=== PATIENT | female | born 1935 | race Caucasian/White ===

== ENCOUNTER → 2018-03-02 | Day surgery (SDC) | payer MEDICARE ==
[2018-02-28 14:47] LABS: BASOPHILS # (AUTO) 0.1 (0.0-0.1); BASOPHILS % 0.6 % (0.0-1.0); EOSINOPHILS # (AUTO) 0.3 (0.0-0.4); EOSINOPHILS % 3.1 % (0.0-6.0); HEMATOCRIT 39.9 % (34.2-44.1); HEMOGLOBIN 13.6 g/dL (12.0-16.0); LYMPHOCYTES # (AUTO) 2.6 (1.0-3.2); LYMPHOCYTES % 27.2 % (18.0-39.1); MEAN CORPUSCULAR HEMOGLOBIN 32.2 pg (28-32); MEAN CORPUSCULAR HGB CONC 34.1 g/dL (31-35); MEAN CORPUSCULAR VOLUME 94.5 fL (81-99); MONOCYTES # (AUTO) 0.9 (0.2-0.8); MONOCYTES % 9.7 % (4.4-11.3); NEUTROPHILS # (AUTO) 5.6 (2.1-6.9); NEUTROPHILS % 58.9 % (38.7-80.0); PLATELET COUNT 249 x10e3/uL (140-360); RED BLOOD COUNT 4.22 x10e6/uL (3.6-5.1); RED CELL DISTRIBUTION WIDTH 13.2 % (11.7-14.4)
[2018-02-28 14:57] LABS: ANION GAP 14.3 mmol/L (8-16); CALCIUM 9.6 mg/dL (8.4-10.2); CREATININE, SERUM 1.16 mg/dL (0.57-1.11); POTASSIUM 4.3 mmol/L (3.5-5.1)
--- NOTE | 2018-03-01 07:44 | Diagnostic Imaging Report ---
PROCEDURE: Frontal and lateral views of the chest. COMPARISON: Chest x-ray 05/08/2009 was unavailable for comparison at the time of dictation. INDICATIONS: PREOP CXR FINDINGS: Lines/tubes: None. Lungs: The lungs are well inflated. Lungs are clear. There is no evidence of pneumonia or pulmonary edema. Pleura: There is no pleural effusion or pneumothorax. Heart and mediastinum: The heart and the mediastinum are normal. Aorta is tortuous and ectatic with significant atherosclerotic calcifications. Calcified bilateral hilar and mediastinal lymph nodes. Bones: No acute bony abnormality. Right upper quadrant cholecystectomy clips. Extensive vascular calcifications seen in the upper abdomen. IMPRESSION: 1. No acute cardiopulmonary disease. 2. Significant vascular calcifications. Dictated by: Douglas Alvarado M.D. on 02/28/2018 at 17:23 Electronically approved by: Douglas Alvarado M.D. on 02/28/2018 at 17:23
[~2018-03-02] MED LIST: ACETAMINOPHEN 1000 MG/100 ML 100 ML IV ONE; AMLODIPINE BESY10 MG PO; AMLODIPINE BESYL5 MG PO; ASPIRIN81 MG; ATORVASTATIN CA20 MG PO; BUPIVACAINE 0.5%/EPI 30 ML SDV INJ ONE; CEFAZOLIN SOD 2 GM/D5W 50ML 50 ML IV ONE; DEXAMETHASONE SOD PHOS INJ 4 MG/ML VIAL ONE; EPHEDRINE SULFATE INJ 50 MG/10 ML SYR ONE; FAMOTIDINE20 MG PO; FENTANYL CITRATE/PF 100MCG/2 ML INJ ONE; FLUNISOLIDE25 ML; FUROSEMIDE20 MG; KETOROLAC TROMETHAMINE 30 MG/ML VIAL ONE; LEVOCETIRIZINE D5 MG; LIDOCAINE HCL 2% LOCAL INJ 5 ML SDV VIAL INJ ONE; LOSARTAN POTAS100 MG PO; METOPROLOL SUCC25 MG; ONDANSETRON HCL INJ 2 MG/ML VIAL ONE; OXYBUTYNIN CHLOR5 MG PO; PRO AIR; PROPOFOL IV EMULSION 10 MG/ML 20 ML VIAL ONE; PROZAC20 MG; SEVOFLURANE INHAL SOLN 250 ML PEN BTL ONE; SYMBICORT 16010.2 GM; TEMAZEPAM15 MG; VITAMIN D3400 UNIT
--- OUTSIDE RECORDS SUMMARY | 2018-03-02 11:10 | XMS REPORT ---
Author Author [facility] Address Unknown Phone Unavailable Care Team Providers Care Pest Control Chemical Technician Name Role Phone SYLVIA SHERMAN Unavailable Unavailable Problems This patient has no known problems. Allergies, Adverse Reactions, Alerts This patient has no known allergies or adverse reactions. Medications This patient has no known medications. Results Test Description Test Time Test Comments Text Results Atomic Results Result Comments CHEST 2 VIEWS [place] [address] Patient Name: NJ MANCUSO MR #: [id number] : 1935 Age/Sex: 83/F Req # : [id number] Adm Physician: Ordered by: SYLVIA SHERMAN MD Report #: [id number] Location: OR Room/Bed: Procedure: [id number] DX/CHEST 2 VIEWS Exam Date: 02/28/18 Exam Time : 1540 REPORT STATUS: Signed PROCEDURE: Frontal and lateral views of the chest. COMPARISON: Chest x-ray 05/08/2009 was unavailable for comparison at the time of dictation. INDICATIONS: PREOP CXR FINDINGS: Lines/tubes: None. Lungs: The lungs are well inflated. Lungs are clear. There is no evidence of pneumonia or pulmonary edema. Pleura: There is no pleural effusion or pneumothorax. Heart and mediastinum: The heart and the mediastinum are normal. Aorta is tortuous and ectatic with significant atherosclerotic calcifications. Calcified bilateral hilar and mediastinal lymph nodes. Bones: No acute bony abnormality. Right upper quadrant cholecystectomy clips. Extensive vascular calcifications seen in the upper abdomen. IMPRESSION: 1. No acute cardiopulmonary disease. 2. Significant vascular calcifications. Dictated by: Chandrika Alvarado M.D. on 02/28/2018 at 17:23 Electronically approved by: Chandrika Alvarado M.D. on 02/28/2018 at 17:23 Dictated By: CHANDRIKA ALVARADO MD 172 Transcribed By: MAYRA on 02/28/18 1723 COPY TO: SYLVIA SHERMAN MD
--- NOTE | 2018-03-07 15:24 | Operative Report ---
DATE OF PROCEDURE: March 02, 2018 PREOPERATIVE DIAGNOSES 1. Left knee medial meniscus tear. 2. Left degenerative disease of the knee. POSTOPERATIVE DIAGNOSES 1. Left knee medial meniscus tear. 2. Left degenerative disease of the knee. 3. Medial shelf plica. OPERATIONS/PROCEDURES PERFORMED 1. Left knee arthroscopy. 2. Left knee partial medial meniscectomy. 3. Left knee chondroplasty of patella, trochlea, medial femoral condyle, medial tibial plateau, lateral femoral condyle, and lateral tibial plateau as well as resection of a medial shelf plica. [employer]: None. BRIEF DESCRIPTION OF THE PATIENT'S OPERATIVE PROCEDURE: Ms. Landers was taken to the operating room and placed in the supine position on the operating table. Following induction of general anesthesia as well as endotracheal intubation, the patient's left lower extremity was examined under anesthesia. She was found to have a mild effusion within the knee joint, but otherwise ligamentously stable knee. The patient's lower extremity was prepped and draped in standard surgical fashion. A 2-portal technique was used to provide this patient arthroscopic evaluation of the knee joint. Examination of the suprapatellar pouch and medial and lateral gutters found no evidence of loose bodies. There was, however, a large plica that was interdigitating between the patella and trochlea. A 2-portal technique was used to provide this patient arthroscopic evaluation of the knee joint. Examination of the suprapatellar pouch and the lateral gutters found no evidence of loose bodies. Examination of the medial gutter demonstrated a displaced segment of the medial meniscus. 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 There was also an enlarged plica interdigitating between the patella and trochlea. Scope was advanced in medial compartment and a torn medial meniscus was identified. There was a large mid-substance tear and the extruded fragment and that was in the medial gutter, was brought back into the medial compartment. There was also chondromalacia of the articulating surfaces. A combination of biting forceps and motorized shaver were used to resect the torn portion of meniscus. Chondroplasties of the medial femoral condyle, medial and tibial plateau were performed at this time. Scope was advanced to intercondylar notch and the anterior cruciate ligament was identified and found to be intact. Scope was advanced in lateral compartment and chondromalacia of the articulating surfaces was encountered. Chondroplasties of the lateral femoral condyle and lateral tibial plateau were performed at this time. Scope was then advanced in the suprapatellar pouch and chondroplasties of the patella and trochlea were performed. The medial shelf plica was also resected at this time. The knee was deflated of its sterile normal saline. The portal sites were closed using 4-0 nylon suture. Portal sites as well as the knee itself were injected with 0.5% Marcaine with epinephrine. Sterile dressings were applied. The patient was then awakened and taken to post-anesthesia care unit in stable condition. Job#: [id number] VAS
== END | disposition home or self-care (01) ==
LOC: OR 11:09
PROVIDERS: ATTEND Specialist
DX: S83.222A Peripheral tear of medial meniscus, current injury, left knee, initial encounter (principal); M17.12 Unilateral primary osteoarthritis, left knee; M22.42 Chondromalacia patellae, left knee; M67.52 Plica syndrome, left knee; I10 Essential (primary) hypertension; J44.9 Chronic obstructive pulmonary disease, unspecified; K21.9 Gastro-esophageal reflux disease without esophagitis; F41.9 Anxiety disorder, unspecified; F03.90 Unspecified dementia, unspecified severity, without behavioral disturbance, psychotic disturbance, mood disturbance, and anxiety; W01.0XXA Fall on same level from slipping, tripping and stumbling without subsequent striking against object, initial encounter; Y92.008 Other place in unspecified non-institutional (private) residence as the place of occurrence of the external cause; Z01.812 Encounter for preprocedural laboratory examination; Z01.818 Encounter for other preprocedural examination; Z79.82 Long term (current) use of aspirin; Z87.891 Personal history of nicotine dependence; Z68.30 Body mass index [BMI] 30.0-30.9, adult
CPT/HCPCS: 29881; 36415; 71046; 80048; 85025; J1100; J1885; J2001; J2405

== ENCOUNTER → 2018-03-08 | Outpatient (CLI) | payer MEDICARE ==
[~2018-03-08] MED LIST changes: -ACETAMINOPHEN 1000 MG/100 ML 100 ML IV ONE; -BUPIVACAINE 0.5%/EPI 30 ML SDV INJ ONE; -CEFAZOLIN SOD 2 GM/D5W 50ML 50 ML IV ONE; -DEXAMETHASONE SOD PHOS INJ 4 MG/ML VIAL ONE; -EPHEDRINE SULFATE INJ 50 MG/10 ML SYR ONE; -FENTANYL CITRATE/PF 100MCG/2 ML INJ ONE; -KETOROLAC TROMETHAMINE 30 MG/ML VIAL ONE; -LIDOCAINE HCL 2% LOCAL INJ 5 ML SDV VIAL INJ ONE; -ONDANSETRON HCL INJ 2 MG/ML VIAL ONE; -PROPOFOL IV EMULSION 10 MG/ML 20 ML VIAL ONE; -SEVOFLURANE INHAL SOLN 250 ML PEN BTL ONE
== END ==
LOC: RAD 11:39
PROVIDERS: ATTEND Specialist
DX: R22.42 Localized swelling, mass and lump, left lower limb (principal)
CPT/HCPCS: 93971

== ENCOUNTER → 2019-03-16 | Day surgery (SDC) | payer MEDICARE ==
[2019-03-13 13:27] LABS: BASOPHILS # (AUTO) 0.1 (0.0-0.1); BASOPHILS % 0.7 % (0.0-1.0); EOSINOPHILS # (AUTO) 0.4 (0.0-0.4); EOSINOPHILS % 3.6 % (0.0-6.0); HEMATOCRIT 42.1 % (34.2-44.1); HEMOGLOBIN 14.4 g/dL (12.0-16.0); LYMPHOCYTES # (AUTO) 1.9 (1.0-3.2); MEAN CORPUSCULAR HEMOGLOBIN 31.9 pg (28-32); MEAN CORPUSCULAR HGB CONC 34.2 g/dL (31-35); MEAN CORPUSCULAR VOLUME 93.1 fL (81-99); MONOCYTES # (AUTO) 0.7 (0.2-0.8); MONOCYTES % 7.6 % (4.4-11.3); NEUTROPHILS # (AUTO) 6.5 (2.1-6.9); NEUTROPHILS % 67.7 % (38.7-80.0); PLATELET COUNT 272 x10e3/uL (140-360); RED BLOOD COUNT 4.52 x10e6/uL (3.6-5.1); RED CELL DISTRIBUTION WIDTH 13.5 % (11.7-14.4)
[2019-03-13 13:44] LABS: ANION GAP 14.8 mmol/L (8-16); CALCIUM 9.8 mg/dL (8.4-10.2); CREATININE, SERUM 1.07 mg/dL (0.57-1.11); POTASSIUM 3.8 mmol/L (3.5-5.1)
--- NOTE | 2019-03-13 14:40 | Diagnostic Imaging Report ---
EXAMINATION: CHEST 2 VIEWS INDICATION: ^PREOP COMPARISON: None FINDINGS: PA and lateral views TUBES and LINES: None. LUNGS: Lungs are well inflated. Bilateral peribronchial cuffing. There is no evidence of pneumonia or pulmonary edema. PLEURA: No pleural effusion or pneumothorax. HEART AND MEDIASTINUM: The cardiomediastinal silhouette is unremarkable. There are atherosclerotic calcifications within the aorta. BONES AND SOFT TISSUES: No acute osseous lesion. Soft tissues are unremarkable. UPPER ABDOMEN: No free air under the diaphragm. There are cholecystectomy clips. IMPRESSION: Bilateral peribronchial cuffing, which could represent viral etiology or reactive airway disease. Signed by: Dr. Douglas Alvarado M.D. on 03/13/2019 2:37 PM
[~2019-03-16] MED LIST changes: +BACITRACIN 50,000 UNIT VIAL ONE; +BUPIVACAINE 0.25%/EPI 30ML SDV INJ ONE; +CEFTRIAXONE SOD 1 GM/NS 50 ML 50 ML IV ONE; +COREG12.5 MG PO; +DEXAMETHASONE SOD PHOS INJ 4 MG/ML VIAL ONE; +EPHEDRINE SULFATE INJ 50 MG/10 ML SYR ONE; +FENTANYL CITRATE/PF 100MCG/2 ML INJ ONE; -FUROSEMIDE20 MG; +FUROSEMIDE20 MG PO; +GLYCOPYRROLATE INJ 1MG/ 5 ML SYR ONE; +IOPAMIDOL 610MG/1ML 300 MG/ML VIAL IV ONE; -LEVOCETIRIZINE D5 MG; +LEVOCETIRIZINE D5 MG PO; +LIDOCAINE HCL 2% JELLY 5 ML TUBE ONE; +LIDOCAINE HCL 2% LOCAL INJ 5 ML SDV VIAL INJ ONE; -METOPROLOL SUCC25 MG; +METOPROLOL SUCC25 MG PO; +ONDANSETRON HCL INJ 2MG/ML 2ML 2 MG/ML VIAL ONE; +OXYMETAZOLINE HCL 0.05%; +PROPOFOL IV EMULSION 10 MG/ML 20 ML VIAL ONE; +SEVOFLURANE INHAL SOLN 250 ML PEN BTL ONE; -TEMAZEPAM15 MG; +TEMAZEPAM15 MG PO; +TESSALON PERLE100 MG PO; +TRILOGY INH; -VITAMIN D3400 UNIT; +VITAMIN D3400 UNIT PO
--- OUTSIDE RECORDS SUMMARY | 2019-03-16 06:38 | XMS REPORT | Summary of Care ---
Author Author [facility] [place] Organization [facility] [place] Address Unknown Phone Unavailable Encounter HQ Encntr_alias(FIN) [id number] Date(s): 07/30/16 - 07/30/16 [facility] [place] [address] [place] [phone] Discharge Disposition: Home or Self Care Attending Physician: Iglesia Phelps DO Vital Signs No data available for this section Problem List No data available for this section Allergies, Adverse Reactions, Alerts No data available for this section Medications No data available for this section Results No data available for this section Immunizations No data available for this section Procedures No data available for this section Social History No data available for this section Assessment and Plan No data available for this section
--- OUTSIDE RECORDS SUMMARY | 2019-03-16 06:38 | XMS REPORT | Summary of Care ---
Author Author [facility] [place] Organization [facility] [place] Address Unknown Phone Unavailable Encounter HQ Encntr_alias(FIN) [id number] Date(s): 04/13/16 - 04/13/16 [facility] [place] [address] [place] [phone] Discharge Disposition: Home or Self Care Attending [...]
--- OUTSIDE RECORDS SUMMARY | 2019-03-16 06:38 | XMS REPORT | Summary of Care ---
Author Author [facility] - [place] Organization [facility] [place] Address Unknown Phone Unavailable Encounter HQ Encntr_alias(FIN) [id number] Date(s): 03/16/16 - 03/16/16 [facility] [place] [address] [place] [phone] Discharge Disposition: Home Attending Physician: Iglesia Phelps DO Vital Signs [...]
--- OUTSIDE RECORDS SUMMARY | 2019-03-16 06:38 | XMS REPORT | Summary of Care ---
Author Organization Unknown Address Unknown Phone Unavailable Encounter HQ Encntr_alias([facility]) [id number] Date(s): 01/10/15 - 01/10/15 [facility] Outpatient Imaging - [address] [address] [phone] Discharge Disposition: Home Physician Attending: Iglesia Phelps DO Vital Signs No data [...]
--- OUTSIDE RECORDS SUMMARY | 2019-03-16 06:38 | XMS REPORT | Summary of Care ---
Author Author [facility] Out[facility] - [place] Organization [facility] [place] Address Unknown Phone Unavailable Encounter HQ Encntr_alias(FIN) [id number] Date(s): 01/12/18 - 01/12/18 [facility] Out[facility] - [place] [address] [place] [phone] Discharge Disposition: Home or Self Care Attending [...]
--- OUTSIDE RECORDS SUMMARY | 2019-03-16 06:38 | XMS REPORT | Summary of Care ---
Author Author [facility] - [place] Organization [facility] [place] Address Unknown Phone Unavailable Encounter HQ Encntr_alias(FIN) [id number] Date(s): 02/07/18 - 02/07/18 [facility] Out[facility] - [place] [address] [place] [address]- [phone] Discharge Disposition: Home or Self Care Attending [...]
--- OUTSIDE RECORDS SUMMARY | 2019-03-16 06:38 | XMS REPORT | Summary of Care ---
Author Organization Unknown Address Unknown Phone Unavailable Encounter HQ Angelntr_luis([facility]) [id number] Date(s): 05/01/14 - 05/01/14 [facility] Outpatient Imaging - [address] [address] [place] Discharge Disposition: Home Physician Attending: Figueroa Bates MD Reason for Visit 310.1 - PERSONALITY CHG Problem List No data available for this section Allergies, Adverse Reactions, Alerts No data available for this section Medications No data available for this section Medications Administered During Your Visit No data available for this section Immunizations No data available for this section
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
--- OUTSIDE RECORDS SUMMARY | 2019-03-16 06:38 | XMS REPORT | Summary of Care ---
Author Author [facility] [place] Organization [facility] [place] Address Unknown Phone Unavailable Encounter HQ Encntr_alias(FIN) [id number] Date(s): 08/06/16 - 08/06/16 [facility] [place] [address] [place] [address] [phone] Discharge Disposition: Home or Self Care Attending [...]
[2019-03-16 13:05] VITALS: BP 148/75
--- NOTE | 2019-03-25 14:48 | Operative Report ---
DATE OF PROCEDURE: 03/24/2019 SURGEON: Tevin Rojas MD PREOPERATIVE DIAGNOSIS: Stress urinary incontinence. POSTOPERATIVE DIAGNOSIS: Stress urinary incontinence. OPERATIVE PROCEDURE PERFORMED: Pubovaginal sling using [employer] Fit Advantage. ANESTHESIA: General anesthesia. ESTIMATED BLOOD LOSS: Minimal. INDICATIONS: Ms. Landers is an 84-year-old woman with a long history of mixed incontinence, stress versus an urge, who presents for definitive surgical management of this problem. PROCEDURE IN DETAIL: The patient was brought in the operating room, placed in supine position. After initiation of general anesthesia, she was placed in dorsal lithotomy position, prepped and draped in the usual sterile fashion. A Doss catheter was placed and the balloon inflated. After infiltration with 1% lidocaine, 1 cm incision was made in the mid anterior vaginal mucosa approximately 1 cm proximal to the urethral meatus. Dissection was carried out in and around the periurethral tissues on both sides. The [employer] Fit Advantage trocars were placed first on the right side and subsequently on the left side and allowed to exit through retropubic space. The trocar exit sites were infiltrated using 0.25% Marcaine. The Doss was removed and cystoscopy was performed. This revealed no evidence of injury to the bladder. Good submucosal placement of the trocars on both sides. The tape was then pulled anteriorly since there was 1 cm gap between the posterior urethra and the sling. The vaginal mucosa was then pulled out over this, reapproximated and closed with a [id number] suture. The tape was cut flushed with the anterior abdominal wall. These wounds were closed with Dermabond. The vagina was irrigated and a vaginal pack was placed. The patient was returned to supine position and anesthesia was reversed. She was transferred to a bed and taken to the postanesthesia care unit in good condition. Of note, the needle and instrument count were correct at the conclusion of the case. Tevin Rojas MD HLW/MODL /[id number]
== END | disposition home or self-care (01) ==
LOC: OR 06:26
PROVIDERS: ATTEND Urology
DX: N39.46 Mixed incontinence (principal); J44.9 Chronic obstructive pulmonary disease, unspecified; I10 Essential (primary) hypertension; R00.1 Bradycardia, unspecified; K21.9 Gastro-esophageal reflux disease without esophagitis; F32.9 Major depressive disorder, single episode, unspecified; F41.9 Anxiety disorder, unspecified; Z01.810 Encounter for preprocedural cardiovascular examination; Z01.812 Encounter for preprocedural laboratory examination; Z01.818 Encounter for other preprocedural examination; Z87.891 Personal history of nicotine dependence; Z79.82 Long term (current) use of aspirin
CPT/HCPCS: 36415; 57288; 71046; 80048; 85025; 93005; C1771; J0696; J1100; J2001 ×2; J2405; J2704; J3490; J3010

== ENCOUNTER 2019-05-22 16:58 | Inpatient (IN) | payer MEDICARE ==
[~2019-05-22] VITALS: Ht 157.5 cm; Wt 92.1 kg
[~2019-05-22 16:58] MED LIST changes: -BACITRACIN 50,000 UNIT VIAL ONE; -BUPIVACAINE 0.25%/EPI 30ML SDV INJ ONE; -CEFTRIAXONE SOD 1 GM/NS 50 ML 50 ML IV ONE; -COREG12.5 MG PO; -DEXAMETHASONE SOD PHOS INJ 4 MG/ML VIAL ONE; -EPHEDRINE SULFATE INJ 50 MG/10 ML SYR ONE; -FENTANYL CITRATE/PF 100MCG/2 ML INJ ONE; -GLYCOPYRROLATE INJ 1MG/ 5 ML SYR ONE; -IOPAMIDOL 610MG/1ML 300 MG/ML VIAL IV ONE; -LIDOCAINE HCL 2% JELLY 5 ML TUBE ONE; -LIDOCAINE HCL 2% LOCAL INJ 5 ML SDV VIAL INJ ONE; -ONDANSETRON HCL INJ 2MG/ML 2ML 2 MG/ML VIAL ONE; -OXYMETAZOLINE HCL 0.05%; -PROPOFOL IV EMULSION 10 MG/ML 20 ML VIAL ONE; -SEVOFLURANE INHAL SOLN 250 ML PEN BTL ONE; -TESSALON PERLE100 MG PO
[2019-05-22] MEDS ORDERED: ASPIRIN 325 MG TAB PO ONE ×2 (17:15→18:30)
[2019-05-22 17:29] LABS: BASOPHILS # (AUTO) 0.1 (0.0-0.1); BASOPHILS % 0.5 % (0.0-1.0); EOSINOPHILS # (AUTO) 0.4 (0.0-0.4); EOSINOPHILS % 4.2 % (0.0-6.0); HEMATOCRIT 35.6 % (34.2-44.1); HEMOGLOBIN 11.9 g/dL (12.0-16.0); LYMPHOCYTES # (AUTO) 2.2 (1.0-3.2); MEAN CORPUSCULAR HEMOGLOBIN 32.2 pg (28-32); MEAN CORPUSCULAR HGB CONC 33.4 g/dL (31-35); MEAN CORPUSCULAR VOLUME 96.5 fL (81-99); MONOCYTES % 10.6 % (4.4-11.3); NEUTROPHILS # (AUTO) 5.9 (2.1-6.9); NEUTROPHILS % 61.3 % (38.7-80.0); PLATELET COUNT 264 x10e3/uL (140-360); RED BLOOD COUNT 3.69 x10e6/uL (3.6-5.1); RED CELL DISTRIBUTION WIDTH 13.5 % (11.7-14.4)
[2019-05-22 17:38] LABS: INR 0.93
[2019-05-22 17:39] LABS: PARTIAL THROMBOPLASTIN TIME 28.3 seconds (23.8-35.5)
[2019-05-22 17:45] LABS: ALBUMIN 3.9 g/dL (3.5-5.0); ALBUMIN/GLOBULIN RATIO 1.1 (0.8-2.0); ANION GAP 15.8 mmol/L (8-16); CALCIUM 9.5 mg/dL (8.4-10.2); CREATININE, SERUM 1.18 mg/dL (0.57-1.11); POTASSIUM 3.8 mmol/L (3.5-5.1)
[2019-05-22 17:52] LABS: CREATINE KINASE MB 4.9 ng/mL (0-5.0)
--- NOTE | 2019-05-22 18:01 | Diagnostic Imaging Report ---
Exam: Chest one view Comparison: March 13, 2019 Clinical history: Shortness of breath Findings: There is increased bilateral peribronchial cuffing which may represent reactive airway disease versus bronchiolitis. Patchy airway opacities are also seen in the right lung base, which may represent atelectasis versus early consolidation. The cardiac size is within normal limits. The regional osseous structures are unremarkable. Signed by: Dr. Pierre Albert MD on 05/22/2019 5:58 PM
--- OUTSIDE RECORDS SUMMARY | 2019-05-22 18:22 | XMS REPORT | Continuity of Care Document ---
Author Author [employer] Organization [employer] Address Unknown Phone Unavailable Care Team Providers Care Supervisor Assembly Name Role Phone LoopUp Information [employer] Unavailable Unavailable Problems Problem Status Onset Date Classification Date Reported Comments Source S20.219A - CONTUSION OF UNSPECIFIED FRON Active 07/29/2016 [facility] [place] M79.661 - PAIN IN RIGHT LOWER LEG Active 04/08/2016 [facility] [place] V76.12 - SCREEN MAMMOGRA Active 04/05/2012 [facility] [place] Medications No Data Provided for This Section Allergies, Adverse Reactions, Alerts No Known Medication Allergies Immunizations No Data Provided for This Section Results No Data Provided for This Section Pathology Reports No Data Provided for This Section Diagnostic Reports Report Value Date Source Abdomen wo IV contrast CT EXAM: Abdomen [...] f. >/=5.5 cm: Vascular surgery consultation. 02/07/2018 [facility] [place] Knee 1-2 Views unilateral DX EXAMINATION: Left [...] secondary to calcium pyrophosphate deposition disease. [facility] [place] [facility] lumbar series DX EXAM: Spine lumbar [...] ultrasound or CT for further evaluation. 01/12/2018 [facility] [place] Breast Complete Uni US - BREAST COMPLETE UNI US/R ULTRASOUND OF RIGHT BREAST: 08/06/2016 CLINICAL: Blunt Trauma, Contusion, Pain. Comparison is made to exam dated: 08/06/2016 mammogram - [facility]. Color flow and real-time ultrasound of the [...] recommended. Professional services are provided by the [facility] Division of Diagnostic Imaging. Siddhartha Foote M.D. cm/:08/06/2016 13:18:14 Weight Loss Consultant: Lexy Gee RT, [facility] This exam was dictated and interpreted by [id number] for [place]. letter sent: Normal exam Ultrasound BI-RADS: 2 Benign 08/06/2016 [facility] [place] Digital Mammo DX Gen MA - DIGITAL MAMMO DX GEN MA BILATERAL DIGITAL DIAGNOSTIC MAMMOGRAM WITH CAD: [...] recommended. Professional services are provided by the [facility] Division of Diagnostic Imaging. Siddhartha Foote M.D. cm/penrad:08/06/2016 13:16:00 Weight Loss Consultant: Kyleigh Mckeon RT(R)(M), [facility] This exam was dictated and interpreted by [id number] for [place]. letter sent: Normal exam Mammogram BI-RADS: 2 Benign 08/06/2016 [facility] [place] Chest 2 views DX EXAM: 2 view(s) of the chest. CLINICAL HX: acute blunt trauma and contusion to Right breast/chest. . . COMPARISON: Chest x-ray: 06/26/2015. FINDINGS: Support apparatus: None. Cardiac silhouette: Unremarkable. Latonya: Unremarkable. Lobar consolidation: Negative. Pleural effusion: Negative. Pneumothorax: Negative. Other: Negative. Bones: Unremarkable. Other: None. IMPRESSION: 1. No acute cardiopulmonary process. 07/30/2016 [facility] [place] Chest wo contrast CT EXAMINATION: CT OF [...] degenerative changes of the thoracic spine. 07/30/2016 [facility] [place] Ext Lower Venous Doppler Unilat US EXAM: [...] evidence of acute deep vein thrombosis. 04/13/2016 [facility] [place] Ext Upper Arterial Unilat Doppler US EXAM: [...] 1. No evidence of arterial occlusion. 04/13/2016 [facility] Upper Venous Doppler Unilat US EXAM: Unilateral [...] evidence of acute deep vein thrombosis. 04/13/2016 [facility] Lower Arterial Doppler unilat US EXAM: Unilateral right lower extremity arterial doppler. INDICATION: Limb pain, right lower. TECHNIQUE: The unilateral right lower extremity arterial system was evaluated with grayscale and Doppler. Note: PSV=peak systolic velocity. NURSE ESTHETICIAN=common femoral artery. SFA=superficial femoral artery. GINA=anterior tibial artery. INDUSTRIAL TECHNOLOGY EDUCATION TEACHER=posterior tibial artery. POP=popliteal artery. DPA=dorsalis pedis artery. FINDINGS: Arteries of the right lower extremity: Atherosclerosis present. NURSE ESTHETICIAN: Biphasic waveform. PSV of 182 cm/s. SFA: Biphasic waveform. PSV of 58-1 48 cm/s. POP: Biphasic waveform. PSV of 69 cm/s. GINA: Biphasic waveform. PSV of 67 cm/s. INDUSTRIAL TECHNOLOGY EDUCATION TEACHER: Biphasic waveform. PSV of 70 cm/s. DPA: Biphasic waveform. PSV of 43 cm/s. Other: None. IMPRESSION: 1. No evidence of arterial occlusion. 04/13/2016 [facility] [place] Knee 1-2 Views unilateral DX CLINICAL HISTORY: [...] Small to moderate knee joint effusion.. 03/16/2016 [facility] [place] Chest 2 views DX Exam: Two-view chest [...] vascular congestion. No focal lung consolidations. 06/26/2015 [facility] [place] Spine lumbar 2 or 3 views [...] seen within the lower lumbar spine. 01/10/2015 [facility] [place] Brain wo contrast MRI MRI BRAIN WITHOUT [...] Nonspecific mild to moderate cerebral atrophy. 05/01/2014 [facility] [place] Chest w/wo contrast CT Exam: Chest CT [...] pulmonary embolism. 2. Centrilobular emphysematous changes. 07/07/2013 [facility] [place] Extremity lower venous doppler bilat US Bilateral Lower Extremity Doppler. History: Shortness of breath Comparison: None. Findings: Grayscale, color Doppler, and spectral wave form analysis was performed of the bilateral lower extremities. There is normal compressibility and wave form throughout the lower extremities with adequate response to augmentation. Impression: 1. Negative for deep venous thrombosis of the lower extremities bilaterally. 07/07/2013 [facility] [place] Carotid artery bilateral Duplex US REASON FOR [...] consensus panel criteria. Dictation code: 15 05/10/2013 [facility] [place] Consultation Notes No Data Provided for This Section Discharge Summaries No Data Provided for This Section History and Physicals No Data Provided for This Section Vital Signs No Data Provided for This Section Encounters Location Location Details Encounter Type Encounter Number Reason For Visit Attending Provider ADM Date DC Date Status Source [facility] [place] [facility] [id number] Figueroa Bates 05/01/2014 05/02/2014 [facility] [place] [facility] [place] [facility] [id number] Stefany Phelps 01/10/2015 01/11/2015 [facility] [place] [facility] [place] [facility] [id number] Stefany Phelps 03/16/2016 03/17/2016 [facility] [place] [facility] [place] [facility] [id number] Stefany Phelps 04/13/2016 04/14/2016 [facility] [place] [facility] [place] [facility] [id number] Stefany Phelps 07/30/2016 07/31/2016 [facility] [place] [facility] [place] [facility] [id number] Stefany Phelps 08/06/2016 08/07/2016 [facility] [place] [facility] [place] [facility] [id number] Stefany Phelps 01/12/2018 01/13/2018 [facility] [place] [facility] [place] [facility] [id number] Stefany Phelps 02/07/2018 02/08/2018 [facility] [place] [id number] V76.12 - SCREEN MAMMOGRA STEFANY PHELPS Cancel [facility] [place] Procedures No Data Provided for This Section Assessment and Plan No Data Provided for This Section Plan of Care No Data Provided for This Section Social History Social History Date Source No data available for this section 02/08/2018 [facility] [place] Family History No Data Provided for This Section Advance Directives No Data Provided for This Section Functional Status No Data Provided for This Section
--- OUTSIDE RECORDS SUMMARY | 2019-05-22 18:37 | XMS REPORT | Continuity of Care Document ---
Author Author [employer] Organization [employer] Address Unknown Phone Unavailable Care Team Providers Care Lodge Attendant Name Role Phone Pica8 Information [employer] Unavailable Unavailable Problems Problem Status Onset Date Classification Date Reported Comments Source S20.219A - CONTUSION OF UNSPECIFIED FRON Active 07/29/2016 [facility] [place] M79.661 - PAIN IN RIGHT LOWER LEG Active 04/08/2016 [facility] [place] V76.12 - SCREEN MAMMOGRA Active 04/05/2012 [facility] [place] Medications No Data Provided for This Section [...] secondary to calcium pyrophosphate deposition disease. [facility] [place] Sp[facility] lumbar [facility] DX EXAM: Spine lumbar [...] made to exam dated: 08/06/2016 mammogram - [facility]. Color flow and real-time ultrasound of the [...] recommended. Professional services are provided by the [facility] Division of Diagnostic Imaging. Siddhartha Foote M.D. cm/:08/06/2016 13:18:14 Hydroelectric Machinery Mechanic: Lexy Gee RT, [facility] This exam was dictated and interpreted by [id number] for [place]. letter sent: Normal exam Ultrasound [...] recommended. Professional services are provided by the [facility] Division of Diagnostic Imaging. Siddhartha Foote M.D. cm/penrad:08/06/2016 13:16:00 Hydroelectric Machinery Mechanic: Kyleigh Mckeon RT(R)(M), [facility] This exam was dictated and interpreted by [id number] for [place]. letter sent: Normal exam Mammogram [...] evidence of acute deep vein thrombosis. [facility] [place] [facility] Upper Arterial Unilat Doppler US EXAM: [...] 1. No evidence of arterial occlusion. 04/13/2016 [facility] Upper Venous Doppler Unilat US EXAM: Unilateral [...] evidence of acute deep vein thrombosis. 04/13/2016 [facility] Lower Arterial Doppler unilat US EXAM: Unilateral right lower extremity arterial doppler. INDICATION: Limb pain, right lower. TECHNIQUE: The unilateral right lower extremity arterial system was evaluated with grayscale and Doppler. Note: PSV=peak systolic velocity. RAIL SWITCHMAN=common femoral artery. SFA=superficial femoral artery. GINA=anterior tibial artery. WRINGER OPERATOR=posterior tibial artery. POP=popliteal artery. DPA=dorsalis pedis artery. FINDINGS: Arteries of the right lower extremity: Atherosclerosis present. RAIL SWITCHMAN: Biphasic waveform. PSV of 182 cm/s. SFA: Biphasic waveform. PSV of 58-1 48 cm/s. POP: Biphasic waveform. PSV of 69 cm/s. GINA: Biphasic waveform. PSV of 67 cm/s. WRINGER OPERATOR: Biphasic waveform. PSV of 70 cm/s. DPA: [...] panel criteria. Dictation code: 15 05/10/2013 [facility] [place] Consultation Notes No Data Provided for This Section Discharge Summaries No Data Provided for This Section History and Physicals No Data Provided for This Section Vital Signs No Data Provided for This Section Encounters Location Location Details Encounter Type Encounter Number Reason For Visit Attending Provider ADM Date DC Date Status Source [facility] [place] [facility] [id number] Figueroa Bates 05/01/2014 05/02/2014 [facility] [place] [facility] [place] [facility] [id number] Stefany Phelps 01/10/2015 01/11/2015 [facility] [place] [facility] [place] [facility] [id number] Stefany Phelps 03/16/2016 03/17/2016 [facility] [place] [facility] [place] [facility] [id number] Stefany Phelps 04/13/2016 04/14/2016 [facility] [place] [facility] [place] [facility] [id number] Stefany Phelps 07/30/2016 07/31/2016 [facility] [place] [facility] [place] [facility] [id number] Stefany Phelps 08/06/2016 08/07/2016 [facility] [place] [facility] [place] [facility] [id number] Stefany Phelps 01/12/2018 01/13/2018 [facility] [place] [facility] [place] [facility] [id number] Stefany Phelps 02/07/2018 02/08/2018 [facility] [place] [id number] V76.12 - SCREEN MAMMOGRA STEFANY PHELPS Cancel [facility] [place] Procedures No Data Provided for This Section Assessment and Plan No Data Provided for This Section Plan of Care No Data Provided for This Section Social History Social History Date Source No data available for this section 02/08/2018 [facility] [place] Family History No Data Provided for This Section Advance Directives No Data Provided for This Section Functional Status No Data Provided for This Section
[2019-05-22] MEDS: ALBUTEROL/IPRATROPIUM 3 ML NEB NEB PRN (19:15)
[2019-05-22 20:15] VITALS: BP 146/80
--- NOTE | 2019-05-22 20:15 | NUR ---
patient arrived to unit via stretcher. Denies any CP but does c/o SOB with excerption. She is awake, alert and able to make needs known. Daughter at bedside. Diaper placed per patient request. POC discussed. Patient and daughter instructed to call for assistance as needed and verbalized understanding. Bed in lowest position, locked, bed alarm on and call elliott within reach.
--- NOTE | 2019-05-22 20:51 | NUR ---
Dr. Lopez called regarding home medications and lab work reviewed. Received an order to continue Temazepam 30mg PO HS, lipid panel and Hemoglobin A1C.
[2019-05-22] MEDS: TEMAZEPAM 15 MG CAP PO SCH (21:32)
[2019-05-23] VITALS (8 sets, daily range): BP systolic 128–158; BP diastolic 59–71
--- NOTE | 2019-05-23 | NUR ---
Patient is resting in bed in NAD. Respirations are equal and unlabored. Will continue to monitor.
[2019-05-23] MEDS: ALBUTEROL/IPRATROPIUM 3 ML NEB NEB PRN ×3 (01:02→15:12)
[2019-05-23 02:06] LABS: CREATINE KINASE MB 4.5 ng/mL (0-5.0)
[2019-05-23 05:29] LABS: BASOPHILS # (AUTO) 0.1 (0.0-0.1); BASOPHILS % 0.6 % (0.0-1.0); EOSINOPHILS # (AUTO) 0.6 (0.0-0.4); EOSINOPHILS % 6.9 % (0.0-6.0); HEMOGLOBIN 11.2 g/dL (12.0-16.0); LYMPHOCYTES # (AUTO) 1.7 (1.0-3.2); LYMPHOCYTES % 20.9 % (18.0-39.1); MEAN CORPUSCULAR HGB CONC 32.9 g/dL (31-35); MEAN CORPUSCULAR VOLUME 97.1 fL (81-99); MONOCYTES # (AUTO) 0.8 (0.2-0.8); MONOCYTES % 9.8 % (4.4-11.3); NEUTROPHILS # (AUTO) 4.9 (2.1-6.9); NEUTROPHILS % 61.3 % (38.7-80.0); PLATELET COUNT 216 x10e3/uL (140-360); RED CELL DISTRIBUTION WIDTH 13.4 % (11.7-14.4)
[2019-05-23 05:47] LABS: ANION GAP 13.9 mmol/L (8-16); CREATININE, SERUM 0.91 mg/dL (0.57-1.11); POTASSIUM 3.9 mmol/L (3.5-5.1)
[2019-05-23 06:06] LABS: CHOL/HDL RATIO 5.3 (3.0-3.6)
--- NOTE | 2019-05-23 06:28 | NUR ---
H&P cc: chest pain and sob HPI: 84yoF, PCP??, Pulm , developed coughing and sob for 2 weeks, then started having left sided chest pain that started abou 5-7 days ago. No dizziness. Quit cigarettes many years ago. PMH: mood d/o, HLD, HTN, osteoporosis, stroke, mild dementia, osteoarthritis, depression, diverticulosis, syphilis, nicotine dependence in remission. PSHx; appendectomy, cholecystectomy, LHC 1985 Allergies; see emr Fh/SH : ; quit cigs many years ago. Meds; see MAR ROS: no f/c/s/N/V/D/GRIGSBY/vision changes/dizziness/skin rash v/s: revd PE tired appearing anicteric ns1s2 reduced BS; scattered wheezing-mild soft nt nd no e/t skin dry n. affect a&ox2; mckeon labs/meds; revd A/P: 84yoF AECOPD Atypical CP Abnormal EKG with inverted T waves. CHAYA HTN HLD Depression Nicotine dependence in remission Obesity BMI 32 PreDM- Hba1c 5.7/LDL 91 Hx stroke PLAN doxy/steroids/antitussives/antihistamine; Pulm consult; cardiac enzymes; echo; lipid panel;cardio eval. screen for DM Add statin/ASA/BB/ccb/ARB Restart home meds; Pepcid/lovenox; Yakov Eaton MD, PhD.
[2019-05-23] MEDS ORDERED: GUAIFENESIN/DEXTROMETHORPHAN LIQD 5 ML UDC PO SCH (06:45)
--- NOTE | 2019-05-23 07:17 | NUR ---
Receive patient lying in bed with eyes open. Assisted to the bedside commode. Patient tolerated on standby assist. Nonskid socks on. Call light within reach.
[2019-05-23] MEDS: METHYLPREDNISOLONE SOD SUCC 40 MG/ML VIAL 1ML IV SCH ×2 (08:58→20:44)
[2019-05-23] MEDS: AMLODIPINE BESYLATE 10 MG TAB PO SCH (08:59)
[2019-05-23] MEDS: LORATADINE 10 MG TAB PO SCH (08:59)
[2019-05-23] MEDS: ASPIRIN 325 MG TAB PO SCH (08:59)
[2019-05-23] MEDS: LOSARTAN POTASSIUM 100 MG TAB PO SCH (08:59)
[2019-05-23] MEDS: METOPROLOL SUCCINATE 25 MG TAB XL PO SCH (09:00)
[2019-05-23] MEDS: BENZONATATE 100 MG CAP PO SCH ×3 (09:00→20:44)
[2019-05-23] MEDS ORDERED: NON-FORMULARY MEDICATION (Levocetirizine Dihydrochloride 5 MG) PO SCH (09:00)
[2019-05-23] MEDS: FLUOXETINE HCL 20 MG CAP PO SCH (09:00)
[2019-05-23] MEDS: FAMOTIDINE 20 MG TAB PO SCH (09:00)
[2019-05-23] MEDS ORDERED: DOXYCYCLINE 100MG/NS 100ML 100 ML IV SCH (09:00)
[2019-05-23 09:38] LABS: CREATINE KINASE MB 4.7 ng/mL (0-5.0)
[2019-05-23] MEDS: CEFTRIAXONE SOD 1 GM/NS 50 ML 50 ML IV SCH (15:00)
--- NOTE | 2019-05-23 15:00 | NUR ---
Visit made by the Spiritual Care Department Pastoral Visitor, Hannah Craft. PV provided pastoral presence, prayer, hospitality, and supportive listening. Pastoral Visitor informed pt/family of the scope of Process Improvement Engineer Services and availability. ASAF MERINO Orthodontist Spiritual Care Department O: [phone] Pager: [phone] ([phone] calling from)
--- NOTE | 2019-05-23 15:06 | Diagnostic Imaging Report ---
CT of the chest, without contrast. History: Congestion. Comparison: Chest radiograph from 05/22/2019. Technique: Multidetector CT scanning of the chest was performed from the level of the apices to the upper abdomen without contrast. Coronal and sagittal multiplanar reformations were obtained. RADIATION DOSE: Total DLP: 498.48 mGy*cm Dose modulation, iterative reconstruction, and/or weight based adjustment of the mA/kV was utilized to reduce the radiation dose to as low as reasonably achievable. Findings: The thyroid and remaining visualized structures within the base of neck demonstrate no significant abnormality. The thoracic aorta is normal in course and caliber with extensive atherosclerotic calcifications within its course and branch vessels including the coronary arteries. The heart is not enlarged. No abnormal pericardial fluid is present. There is no abnormal axillary, mediastinal, or hilar lymph node enlargement. Multiple normal-sized mediastinal lymph nodes are noted. The trachea and proximal airways are patent. There are moderate centrilobular emphysematous changes present, more prominent within the upper lobes. There is a trace right pleural effusion present with associated right basilar atelectasis. There is minimal left basilar atelectasis. There is no evidence for consolidation, pneumothorax, mass, suspicious nodule, A left hepatic cyst is noted. There is prominent atherosclerotic calcifications of the visualized abdominal aorta and branch vessels. The gallbladder surgically absent. The remaining visualized upper abdominal contents are unremarkable. There are degenerative changes of the thoracic spine. The osseous structures demonstrate no evidence for acute fracture or destructive process the extrathoracic soft tissues are unremarkable. IMPRESSION: 1. Trace right pleural effusion with associated right basilar atelectasis. 2. Moderate centrilobular emphysematous changes. 3. Prominent atherosclerosis and coronary artery disease. Signed by: Dr. Ramsey Leon MD on 05/23/2019 3:03 PM
[2019-05-23] MEDS: FUROSEMIDE INJ 10 MG/ML 2 ML VIAL IV SCH ×2 (15:30→17:00)
[2019-05-23] MEDS: AZITHROMYCIN 500MG/NS 250 ML 250 ML IV SCH (16:08)
--- NOTE | 2019-05-23 16:20 | Consultation ---
DATE OF CONSULTATION: 05/23/2019 Pulmonary Critical Care Consultation CHIEF COMPLAINT: Congestion and wheezing. HISTORY OF PRESENT ILLNESS: The patient is an 84-year-old woman. She has a history of COPD, hypertension, and some diastolic heart failure. She reports worsening congestion and wheezing over the past several days. She does not complain of any fever. She has a cough productive of small amounts of phlegm. She has no chest pain. She has no nausea or vomiting. PAST MEDICAL HISTORY: 1. COPD. 2. Possible aspiration. 3. Hypertension. 4. Diastolic heart failure. PAST SURGICAL HISTORY: Noncontributory. SOCIAL HISTORY: The patient is not an active smoker or drinker. ALLERGIES: THERE ARE NO KNOWN DRUG ALLERGIES. FAMILY HISTORY: Family history is noncontributory. REVIEW OF SYSTEMS: The patient denies fever. There is no headache or neck pain. She reports difficulty breathing and cough. She has some wheezing. She denies chest pain. There is no nausea or vomiting. She has no leg edema. There are no focal neurological complaints. PHYSICAL EXAMINATION: VITAL SIGNS: The blood pressure is 150/71, saturation is 93% on 2 L, and the pulse is 64. HEENT: Shows no facial swelling or erythema. The oropharynx is normal. LYMPHATIC: Shows no submandibular, cervical, or supraclavicular adenopathy. CARDIAC: Reveals a regular rate and rhythm with a normal S1 and S2. There are no murmurs or rubs. LUNGS: Auscultation of lungs reveals a prolonged expiratory phase and wheezing bilaterally. There are crackles at the bases. ABDOMEN: Soft and nontender. There is no rebound or guarding. EXTREMITIES: Shows no leg edema or calf tenderness. There is no cyanosis or clubbing. SKIN: Shows no rashes. NEUROLOGICAL: Shows no focal abnormalities. LABORATORY DATA: Blood counts are within normal limits. The BUN to creatinine ratio is normal. The other electrolytes are within normal limits. RADIOGRAPHIC DATA: Chest x-ray shows bilateral peribronchial cuffing and some patchy airway opacities in the right lung base. IMPRESSION: 1. Aspiration pneumonia with sepsis, present on admission. 2. Chronic obstructive pulmonary disease with acute exacerbation. 3. Chronic diastolic heart failure. PLAN: 1. The patient will receive antibiotics along with Solu-Medrol. 2. Echocardiogram, cardiac enzymes, and Cardiology consultation. 3. Speech therapy evaluation and modified barium swallow. 4. Oxygen as needed. 5. CT scan of the chest. MD RAFFI Chirinos/MARIPOSA /[id number]
[2019-05-23] MEDS: ENOXAPARIN SOD INJ 40 MG/0.4 ML SYR SC SCH (17:05)
[2019-05-23 18:31] LABS: CREATINE KINASE MB 4.3 ng/mL (0-5.0)
--- NOTE | 2019-05-23 18:50 | NUR ---
Walking rounds and report received. POC discussed. Patient instructed to call for assistance as needed and verbalized understanding. No complaints voiced at this time. She states she feels better today. Patient assisted to bedside commode by day nurse and instructed to call for assistance once she is ready to go back to bed. Call elliott within reach.
--- NOTE | 2019-05-23 19:16 | Consultation ---
DATE OF CONSULTATION: 05/23/2019 Cardiology Consultation Note REASON FOR CONSULT: Shortness of breath. CHIEF COMPLAINT: Shortness of breath. HISTORY OF PRESENT ILLNESS: The patient is an 84-year-old female with history of chronic obstructive pulmonary disease, hypertension, hyperlipidemia, who presents with worsening cough and shortness of breath for past several weeks, worsened acutely over the past 2 days. Denies any fevers or chills. Also, reports an episode of chest pain yesterday. She went to her planning director, Dr. Castillo and when she was seen in clinic, an EKG was done, and she was noted to have deep symmetric T-wave inversions in the precordial leads and given concerns for ischemia. She was told to go to [facility]. However, the patient's family preferred [facility] and she was brought here. We are seeing her as a consult with Dr. Castillo, did not privileges at this institution. Currently, the patient says that she is still feeling short of breath, however, her chest pain has resolved. I had a long discussion with her daughters including reviewing her previous records. The patient had a normal stress test about 2 years ago in 2017 and her EKG from January of earlier this year also showed deep symmetric T-wave inversions in anterior leads. REVIEW OF SYSTEMS: As per HPI, otherwise negative. SOCIAL HISTORY: She does not smoke, drink, or abuse drugs. FAMILY HISTORY: Noncontributory. OUTPATIENT MEDICATIONS: Reviewed. ALLERGIES: REVIEWED. OBJECTIVE: VITAL SIGNS: Temperature afebrile, pulse 54, respiratory rate 19, blood pressure 154/71, and saturating 93% on 2 L nasal cannula. GENERAL: Elderly female, in mild respiratory distress. CARDIOVASCULAR: Regular rate and rhythm. No murmurs, rubs, or gallops. LUNGS: Some scattered wheezing. Decreased breath sounds at the bases. ABDOMEN: Soft, nontender, nondistended. NEURO AND PSYCH: Alert and oriented to person, place, and time. Normal affect. INPATIENT MEDICATIONS: Reviewed. LABORATORY DATA: Reviewed. TELEMETRY DATA: Reviewed, shows normal sinus rhythm. IMAGING DATA: Reviewed. Chest x-ray is abnormal for possible bronchitis versus pneumonia. ASSESSMENT AND PLAN: 1. Shortness of breath. 2. Chest pain. 3. Hypertension. 4. Chronic obstructive pulmonary disease exacerbation. 5. Abnormal EKG. PLAN: Her EKG is concerning for ischemia, however, is unchanged since her previous EKG that was done in January of this year. Currently, she is chest pain free. Has been ruled out for acute [place] with serial troponins. Continue current cardiovascular medications. We will start her on low-dose furosemide given elevated BNP. Once her respiratory status is improved, we will discuss options for ischemic evaluation. Thank you for this consult. We will continue to follow closely. MD HEIDI Morfin/MODL /[id number]
[2019-05-23] MEDS: TEMAZEPAM 15 MG CAP PO SCH (20:44)
[2019-05-23] MEDS: ATORVASTATIN 40 MG TAB PO SCH (20:44)
[2019-05-24] VITALS (8 sets, daily range): BP systolic 130–161; BP diastolic 60–76
--- NOTE | 2019-05-24 00:30 | NUR ---
Patient resting in bed in NAD, appears comfortable and breathing unlabored. Call elliott within reach.
[2019-05-24] MEDS: GUAIFENESIN/DEXTROMETHORPHAN LIQD 5 ML UDC PO PRN (02:24)
--- NOTE | 2019-05-24 07:17 | NUR ---
IM- progress note O/N no events ROS: no f/c/s/N/V/D/GRIGSBY/vision changes/dizziness/skin rash v/s: revd PE tired appearing anicteric ns1s2 reduced BS; scattered wheezing-mild soft nt nd no e/t skin dry n. affect a&ox2; mckeon labs/meds; revd A/P: 84yoF AECOPD Atypical CP Abnormal EKG with inverted T waves. CHAYA HTN HLD Depression Nicotine dependence in remission Obesity BMI 32 PreDM- Hba1c 5.7/LDL 91 Hx stroke PLAN doxy/steroids/antitussives/antihistamine; Pulm consult; cardiac enzymes; echo; lipid panel;cardio eval. screen for DM Add statin/ASA/BB/ccb/ARB Restart home meds; Pepcid/lovenox; Hba1c/LDL 5.7/91; Trace right pleural effusion; cont care; Yakov Eaton MD, PhD.
--- NOTE | 2019-05-24 07:20 | NUR ---
RECEIVED PATIENT RESTING IN BED NO S/S OF DISTRESS. BED LOW, WHEELS LOCKED, SIDE RAILS X2. CALL LIGHT IN REACH WILL CONTINUE TO MONITOR PATIENT.
[2019-05-24] MEDS: METOPROLOL SUCCINATE 25 MG TAB XL PO SCH (08:40)
[2019-05-24] MEDS: BENZONATATE 100 MG CAP PO SCH ×3 (08:40→21:25)
[2019-05-24] MEDS: FUROSEMIDE INJ 10 MG/ML 2 ML VIAL IV SCH ×2 (08:40→16:58)
[2019-05-24] MEDS: METHYLPREDNISOLONE SOD SUCC 40 MG/ML VIAL 1ML IV SCH ×2 (08:40→21:25)
[2019-05-24] MEDS: LORATADINE 10 MG TAB PO SCH (08:40)
[2019-05-24] MEDS: FAMOTIDINE 20 MG TAB PO SCH (08:40)
[2019-05-24] MEDS: LOSARTAN POTASSIUM 100 MG TAB PO SCH (08:40)
[2019-05-24] MEDS: AMLODIPINE BESYLATE 10 MG TAB PO SCH (08:40)
[2019-05-24] MEDS: FLUOXETINE HCL 20 MG CAP PO SCH (08:40)
[2019-05-24] MEDS: ASPIRIN 325 MG TAB PO SCH (08:40)
--- NOTE | 2019-05-24 09:35 | NUR ---
PATIENT A/O X3, EVEN RESPIRATIONS ON 3LNC. BOWEL SOUNDS PRESENT. TELEMETRY #8 SB. NO PAIN OR DISCOMFORT AT THIS TIME. LEFT AC 18 GAUGE IV SL. IV INTACT AND PATENT. FAMILY AT BEDSIDE, CALL LIGHT IN REACH WILL CONTINUE TO MONITOR PATIENT.
[2019-05-24] MEDS: FLUTICASONE PROPIONATE NASAL SPRAY NS SCH (09:39)
[2019-05-24] MEDS: CEFTRIAXONE SOD 1 GM/NS 50 ML 50 ML IV SCH (12:27)
[2019-05-24] MEDS: AZITHROMYCIN 500MG/NS 250 ML 250 ML IV SCH (13:03)
--- NOTE | 2019-05-24 13:45 | NUR ---
ST NOTE: Pt given business card to pt/family for outpatient services. [facility] request orders placed on pt chart. Family/pt expecting to begin [facility]ES in hospital on 05/25/19 if MD signs orders.
[2019-05-24] MEDS: ALBUTEROL/IPRATROPIUM 3 ML NEB NEB PRN ×2 (14:00→19:40)
--- NOTE | 2019-05-24 14:24 | NUR ---
PATIENT COMPLAINT OF PAIN TO IV SITE. REMOVED LEFT AC IV, NEW IV TO RIGHT FA 20 GAUGE.
[2019-05-24] MEDS: ENOXAPARIN SOD INJ 40 MG/0.4 ML SYR SC SCH (16:58)
--- NOTE | 2019-05-24 17:08 | Diagnostic Imaging Report ---
Exam: Modified barium swallow Clinical history: Dysphasia Total images 19 Total fluoroscopy time 2 minutes and 50 seconds Findings: Modified barium swallow was performed by the speech pathologist. Radiologist was not present during the exam. Please refer to the speech pathology report for further details. Signed by: Dr. Pierre Albert MD on 05/24/2019 5:05 PM
--- NOTE | 2019-05-24 18:16 | Progress Note ---
DATE: 05/24/2019 SUBJECTIVE: The patient has some improvement. She still has some congestion and wheezing. She has mild cough. She complains of fatigue. PHYSICAL EXAMINATION: VITAL SIGNS: The patient is afebrile. The blood pressure is 144/68 and the saturation is 98% on 3 L. HEENT: Shows no facial swelling or erythema. CARDIAC: Reveals regular rate and rhythm with a normal S1, S2. There are no murmurs or rubs heard. LUNGS: Auscultation of lungs reveals rhonchorous breath sounds bilaterally. There is some wheezing. ABDOMEN: Soft, nontender. There is no rebound or guarding. EXTREMITIES: Shows no leg edema or calf tenderness. There is no cyanosis clubbing. SKIN: Shows no rashes. NEUROLOGICAL: Shows no focal abnormalities. IMPRESSION: 1. Aspiration pneumonia with sepsis, present on admission. 2. Chronic obstructive pulmonary disease with acute exacerbation. 3. Chronic diastolic heart failure. PLAN: 1. Continue antibiotics. 2. Continue Solu-Medrol and bronchodilators. 3. Speech therapy. 4. Oxygen. 5. Physical therapy. Keith Monteiro MD [facility]/MODL /[id number]
--- NOTE | 2019-05-24 18:31 | Progress Note ---
DATE: 05/24/2019 Cardiology Progress Note SUBJECTIVE: Continue to have significant coughing, shortness of breath, and wheezing, subjectively slightly better. OBJECTIVE: VITAL SIGNS: Temperature afebrile, pulse 88, respiratory rate 20, blood pressure 144/68, and saturating 98% on 3 L nasal cannula. GENERAL: Elderly white female, in no acute distress. CARDIOVASCULAR: Regular rate and rhythm, 2/6 systolic murmur at right upper sternal border. No rubs or gallops. LUNGS: Scattered wheezing bilaterally. ABDOMEN: Obese, soft, nontender, nondistended. NEURO AND PSYCH: Alert and oriented to person, place, and time. Normal affect. INPATIENT MEDICATIONS: Reviewed. LABORATORY DATA: Reviewed. TELEMETRY DATA: Reviewed, shows normal sinus rhythm. IMAGING DATA: Reviewed. CT of the chest shows moderate central lobar emphysematous changes and prominent arthrosclerosis of coronary arteries. ASSESSMENT AND PLAN: 1. Aspiration pneumonia. 2. Chronic obstructive pulmonary disease exacerbation. 3. Fojaj-nx-yrhlxni diastolic heart failure exacerbation. 4. Coronary artery disease. 5. Chest pain. PLAN: The patient has been ruled out for acute [place] with serial cardiac biomarkers. However, there is significant coronary arthrosclerosis by CT scan and she did have episode of substernal chest pressure prior to admission, which has since resolved. She does have deep T-wave inversions in the precordial leads and that may also be concerning for ischemia; given these findings, although there is no concern for acute coronary syndrome. The patient is at high risk for having severe coronary artery disease. We will plan for coronary angiogram prior to discharge. Once her pulmonary status is more stable. Thank you for this consult. We will continue to follow closely. MD HEIDI Morfin/MODL /[id number]
--- NOTE | 2019-05-24 18:50 | NUR ---
Walking rounds done. Patient is resting in bed. She currently denies any CP or SOB. Bed in lowest position, locked, bed alarm on and call elliott within reach.
--- NOTE | 2019-05-24 20:44 | NUR ---
Dr. Monteiro called per son's request. Received new order to change Rocephin to 2GM IVPB Q 24hours.
[2019-05-24] MEDS ORDERED: CEFTRIAXONE SOD 1 GM/NS 50 ML 50 ML IV ONE (20:45)
[2019-05-24] MEDS: ATORVASTATIN 40 MG TAB PO SCH (21:25)
[2019-05-24] MEDS: TEMAZEPAM 15 MG CAP PO SCH (21:25)
[2019-05-25] VITALS (8 sets, daily range): BP systolic 123–161; BP diastolic 58–74
[2019-05-25] MEDS: ALBUTEROL/IPRATROPIUM 3 ML NEB NEB PRN ×4 (00:20→19:45)
[2019-05-25] MEDS: GUAIFENESIN/DEXTROMETHORPHAN LIQD 5 ML UDC PO PRN ×2 (04:25→17:10)
--- NOTE | 2019-05-25 07:17 | NUR ---
RECEIVED PATIENT ASLEEP IN BED NO S/S OF DISTRESS. BED LOW, WHEELS LOCKED, SIDE RAILS X2. CALL LIGHT IN REACH WILL CONTINUE TO MONITOR PATIENT.
--- NOTE | 2019-05-25 07:18 | NUR ---
IM- progress note O/N no events ROS: no f/c/s/N/V/D/GRIGSBY/vision changes/dizziness/skin rash v/s: revd PE tired appearing anicteric ns1s2 reduced BS; scattered wheezing-mild soft nt nd no e/t skin dry n. affect a&ox2; mckeon labs/meds; revd A/P: 84yoF AECOPD Atypical CP Abnormal EKG with inverted T waves. CHAYA HTN HLD Depression Nicotine dependence in remission Obesity BMI 32 PreDM- Hba1c 5.7/LDL 91 Hx stroke PLAN doxy/steroids/antitussives/antihistamine; Pulm consult; cardiac enzymes; echo; lipid panel;cardio eval. screen for DM Add statin/ASA/BB/ccb/ARB Restart home meds; Pepcid/lovenox; Hba1c/LDL 5.7/91; Trace right pleural effusion; cont care; 05/25 plan for angio prior to d/c. Yakov Eaton MD, PhD.
[2019-05-25] MEDS: BENZONATATE 100 MG CAP PO SCH ×3 (09:03→21:35)
[2019-05-25] MEDS: LOSARTAN POTASSIUM 100 MG TAB PO SCH (09:03)
[2019-05-25] MEDS: CEFTRIAXONE SOD 2 GM/NS 100 ML 100 ML IV SCH (09:03)
[2019-05-25] MEDS: FLUTICASONE PROPIONATE NASAL SPRAY NS SCH (09:03)
[2019-05-25] MEDS: FAMOTIDINE 20 MG TAB PO SCH (09:03)
[2019-05-25] MEDS: FLUOXETINE HCL 20 MG CAP PO SCH (09:03)
[2019-05-25] MEDS: AMLODIPINE BESYLATE 10 MG TAB PO SCH (09:03)
[2019-05-25] MEDS: LORATADINE 10 MG TAB PO SCH (09:03)
[2019-05-25] MEDS: METHYLPREDNISOLONE SOD SUCC 40 MG/ML VIAL 1ML IV SCH ×2 (09:03→21:35)
[2019-05-25] MEDS: ASPIRIN 325 MG TAB PO SCH (09:03)
[2019-05-25] MEDS: METOPROLOL SUCCINATE 25 MG TAB XL PO SCH (09:04)
--- NOTE | 2019-05-25 09:43 | NUR ---
PATIENT A/O X3, EVEN RESPIRATIONS ON 3LNC. BOWEL SOUNDS PRESENT. TELEMETRY #8 SR. NO PAIN OR DISCOMFORT AT THIS TIME. RIGHT FA 20 GAUGE IV SL. IV INTACT AND PATENT. FAMILY AT BEDSIDE, CALL LIGHT IN REACH WILL CONTINUE TO MONITOR PATIENT.
--- NOTE | 2019-05-25 13:10 | Progress Note ---
DATE: 05/25/2019 Pulmonary Critical Care Progress Note SUBJECTIVE: The patient reports some hemoptysis. She has less dyspnea and less wheezing. PHYSICAL EXAMINATION: VITAL SIGNS: The patient is afebrile. The vital signs are stable. HEENT: Shows no facial swelling or erythema. CARDIAC: Reveals a regular rate and rhythm with normal S1 and S2. There are no murmurs or rubs heard. LUNGS: Auscultation of lungs shows clear breath sounds bilaterally. There is no wheezing. ABDOMEN: Soft and nontender. There is no rebound or guarding. EXTREMITIES: Shows no leg edema or calf tenderness. There is no cyanosis or clubbing. SKIN: Shows no rashes. NEUROLOGICAL: Shows no focal abnormalities. IMPRESSION: 1. Aspiration pneumonia with sepsis, present on admission. 2. Hemoptysis. 3. Chronic obstructive pulmonary disease with acute exacerbation. 4. Chronic diastolic heart failure. PLAN: 1. Hold Lovenox because of hemoptysis. 2. Continue antibiotics. 3. Continue bronchodilators and Solu-Medrol. 4. Arrange for bronchoscopy. Keith Monteiro MD [facility]/TARAL /[id number]
[2019-05-25] MEDS: AZITHROMYCIN 500MG/NS 250 ML 250 ML IV SCH (14:24)
--- NOTE | 2019-05-25 16:44 | NUR ---
PATIENT LEFT UNIT VIA WHEELCHAIR TO RADIOLOGY AT THIS TIME
--- NOTE | 2019-05-25 16:55 | NUR ---
PATIENT BACK FROM RADIOLOGY AT THIS TIME
--- NOTE | 2019-05-25 17:22 | Diagnostic Imaging Report ---
Exam: PA and lateral chest radiograph Comparison: May 16, 2019 Clinical history: Chest pain Findings: There is no evidence of pulmonary consolidation, pleural effusion, or pneumothorax. The cardiac size is within normal limits. The regional osseous structures are unremarkable. Signed by: Dr. Pierre Albert MD on 05/25/2019 5:18 PM
[2019-05-25] MEDS: ATORVASTATIN 40 MG TAB PO SCH (21:35)
[2019-05-25] MEDS: TEMAZEPAM 15 MG CAP PO SCH (21:35)
[2019-05-26] VITALS (8 sets, daily range): BP systolic 132–185; BP diastolic 61–84
--- NOTE | 2019-05-26 03:01 | NUR ---
IM- progress note O/N no events ROS: no f/c/s/N/V/D/GRIGSBY/vision changes/dizziness/skin rash v/s: revd PE tired appearing anicteric ns1s2 reduced BS; scattered wheezing-mild soft nt nd no e/t skin dry n. affect a&ox2; mckeon labs/meds; revd A/P: 84yoF AECOPD Atypical CP Abnormal EKG with inverted T waves. CHAYA HTN HLD Depression Nicotine dependence in remission Obesity BMI 32 PreDM- Hba1c 5.7/LDL 91 Hx stroke PLAN doxy/steroids/antitussives/antihistamine; Pulm consult; cardiac enzymes; echo; lipid panel;cardio eval. screen for DM Add statin/ASA/BB/ccb/ARB Restart home meds; Pepcid/lovenox; Hba1c/LDL 5.7/91; Trace right pleural effusion; cont care; 05/25 plan for angio prior to d/c. 05/26 CXR negative; check labs; Yakov Eaton MD, PhD.
[2019-05-26] MEDS: ALBUTEROL/IPRATROPIUM 3 ML NEB NEB PRN ×2 (06:10→13:34)
[2019-05-26 06:25] LABS: BASOPHILS % 0.1 % (0.0-1.0); HEMATOCRIT 34.5 % (34.2-44.1); HEMOGLOBIN 11.5 g/dL (12.0-16.0); LYMPHOCYTES # (AUTO) 0.8 (1.0-3.2); LYMPHOCYTES % 6.6 % (18.0-39.1); MEAN CORPUSCULAR HEMOGLOBIN 32.3 pg (28-32); MEAN CORPUSCULAR HGB CONC 33.3 g/dL (31-35); MEAN CORPUSCULAR VOLUME 96.9 fL (81-99); MONOCYTES # (AUTO) 0.6 (0.2-0.8); MONOCYTES % 5.3 % (4.4-11.3); NEUTROPHILS # (AUTO) 10.4 (2.1-6.9); NEUTROPHILS % 86.4 % (38.7-80.0); PLATELET COUNT 285 x10e3/uL (140-360); RED BLOOD COUNT 3.56 x10e6/uL (3.6-5.1); RED CELL DISTRIBUTION WIDTH 13.7 % (11.7-14.4)
[2019-05-26 06:55] LABS: ANION GAP 12.5 mmol/L (8-16); CALCIUM 9.1 mg/dL (8.4-10.2); CREATININE, SERUM 0.91 mg/dL (0.57-1.11); POTASSIUM 4.5 mmol/L (3.5-5.1)
[2019-05-26] MEDS: GUAIFENESIN/DEXTROMETHORPHAN LIQD 5 ML UDC PO PRN ×2 (08:50→16:28)
[2019-05-26] MEDS ORDERED: SODIUM CHLORIDE 0.9% 250ML 250 ML ONE (08:53)
[2019-05-26] MEDS: AMLODIPINE BESYLATE 10 MG TAB PO SCH ×2 (09:00→11:55)
[2019-05-26] MEDS: ASPIRIN 325 MG TAB PO SCH (09:00)
[2019-05-26] MEDS: METHYLPREDNISOLONE SOD SUCC 40 MG/ML VIAL 1ML IV SCH ×2 (09:00→21:55)
[2019-05-26] MEDS: FAMOTIDINE 20 MG TAB PO SCH (09:00)
[2019-05-26] MEDS: FLUOXETINE HCL 20 MG CAP PO SCH (09:00)
[2019-05-26] MEDS: METOPROLOL SUCCINATE 25 MG TAB XL PO SCH (09:00)
[2019-05-26] MEDS: CEFTRIAXONE SOD 2 GM/NS 100 ML 100 ML IV SCH (09:00)
[2019-05-26] MEDS: LOSARTAN POTASSIUM 100 MG TAB PO SCH (09:00)
[2019-05-26] MEDS: BENZONATATE 100 MG CAP PO SCH ×3 (09:00→21:55)
[2019-05-26] MEDS: LORATADINE 10 MG TAB PO SCH (09:00)
[2019-05-26] MEDS: FLUTICASONE PROPIONATE NASAL SPRAY NS SCH (09:00)
[2019-05-26] MEDS ORDERED: CARVEDILOL 12.5 MG TAB PO SCH (09:45)
--- NOTE | 2019-05-26 11:33 | NUR ---
WITH STANDBY ASSIST, PT OOB TO BATHROOM, CALL LIGHT WITHIN REACH, FAMILY AT SIDE
--- NOTE | 2019-05-26 12:01 | Progress Note ---
DATE: 05/26/2019 Cardiology Progress Note SUBJECTIVE: Continues to cough having some hemoptysis. Plan for bronchoscopy today. Otherwise, no chest pain. Continues to have shortness of breath and wheezing. OBJECTIVE: VITAL SIGNS: Temperature afebrile, pulse 76, respiratory rate 20, blood pressure 172/79 saturating 92% on 3 L nasal cannula. GENERAL: Elderly white female, in mild distress from coughing. CARDIOVASCULAR: Regular rate and rhythm, 2/6 systolic murmur at right upper sternal border. No rubs or gallops. LUNGS: Scattered wheezing bilaterally. ABDOMEN: Soft, nontender, nondistended. NEURO AND PSYCH: Alert and oriented to person, place, and time. Normal affect. INPATIENT MEDICATIONS: Reviewed. LABORATORY DATA: Reviewed. TELEMETRY DATA: Reviewed, shows normal sinus rhythm. IMAGING DATA: Reviewed. ASSESSMENT AND PLAN: 1. Aspiration pneumonia. 2. Chronic obstructive pulmonary disease exacerbation. 3. Acute on chronic diastolic heart failure exacerbation. 4. Coronary artery disease by CT scan of the chest. 5. Chest pain. 6. Hemoptysis. PLAN: The patient has been ruled out for acute [place] with serial cardiac biomarkers. Continues to have pulmonary issues currently including now hemoptysis which is being managed by Pulmonary. She may undergo bronchoscopy to look for cause of her hemoptysis. She would be considered moderate risk for bronchoscopy procedure from a cardiovascular standpoint, given the findings of diffuse arthrosclerosis of her coronary arteries on chest CT scan and abnormal EKG. The patient will require a coronary angiogram prior to discharge. This will be performed once patient is much more stable from her pulmonary standpoint. Thank you for this consult. We will continue to follow closely. We will up titrate blood pressure medications as needed. MD HEIDI Morfin/MARIPOSA /[id number]
--- NOTE | 2019-05-26 12:31 | NUR ---
EDUCATED ABOUT IMM, SIGNED, FILED IN CHART, WITH COPY LEFT WITH FAMILY AT BEDSIDE
--- NOTE | 2019-05-26 12:31 | NUR ---
ST NOTE: Pt is currently NPO for procedure this afternoon. Discussed therapy options and POC with family member. All questions answered. Will resume treatment with [facility]ES next Wednesday. All questions answered.
[2019-05-26] MEDS ORDERED: ACETYLCYSTEINE 200 MG/ML 4ML VIAL ONE (13:21)
[2019-05-26] MEDS ORDERED: LIDOCAINE HCL 4% 50 ML BTL ONE (13:21)
[2019-05-26] MEDS ORDERED: LIDOCAINE HCL 2% 30 ML TUBE ONE (13:22)
[2019-05-26] MEDS ORDERED: OXYMETAZOLINE HCL 0.05% NAS 1 SPRAY BTL ONE (13:22)
[2019-05-26] MEDS: AZITHROMYCIN 500MG/NS 250 ML 250 ML IV SCH (14:00)
--- NOTE | 2019-05-26 14:04 | NUR ---
PT WHEELED OFF UNIT VIA STRETCHER FOR BRONCHOSCOPY, NO CHANGE IN CONDITION
--- NOTE | 2019-05-26 15:41 | NUR ---
SPOKE WITH MD Shahida ORTIZ, ADA DIET ORDERED
--- NOTE | 2019-05-26 16:03 | NUR ---
PT TOLERATING ICE CHIPS AT THIS TIME, CALL LIGHT WITHIN REACH
[2019-05-26] MEDS ORDERED: LIDOCAINE HCL 2% LOCAL INJ 5 ML SDV VIAL INJ ONE (16:44)
[2019-05-26] MEDS ORDERED: DEXAMETHASONE SOD PHOS INJ 4 MG/ML VIAL ONE (16:44)
[2019-05-26] MEDS ORDERED: PROPOFOL IV EMULSION 10 MG/ML 20 ML VIAL ONE (16:44)
--- NOTE | 2019-05-26 17:29 | Operative Report ---
DATE OF PROCEDURE: 05/26/2019 SURGEON: Keith Monteiro MD PREOPERATIVE DIAGNOSIS: Hemoptysis. POSTOPERATIVE DIAGNOSIS: Aspiration pneumonia. CONSENT: Consent was obtained from the patient. ANESTHESIA: The Anesthesia service provided MAC sedation. PROCEDURE IN DETAIL: The patient was placed in a supine position. A laryngeal mask airway was used. The scope was introduced through the laryngeal mask airway. The glottis appeared normal. The scope was advanced through the cords. The tracheal mucosa and jim were normal. The left tracheobronchial tree was examined. There was some blood in the orifice and lingula. The left upper lobe looked normal. There were no endobronchial lesions. The scope was then positioned into the left lower lobe. There was some blood at the orifice of the superior subsegment of the left lower lobe. There is also some blood present at the orifice of the anterior, medial basilar subsegment of the left lower lobe. The scope was then positioned into the right tracheobronchial tree. The right upper lobe was examined. There were no endobronchial lesions. There was some blood present at the orifice of the posterior subsegment of the right upper lobe. The bronchus intermedius looked normal. The right middle lobe looked normal. There was some blood present at the orifice of the superior segment of the right lower lobe. There is also some blood present at medial basilar subsegment orifice and at the anterior basilar subsegment orifice. There were no endobronchial lesions seen. Washings were obtained. COMPLICATIONS: None. ESTIMATED BLOOD LOSS: None. Keith Monteiro MD [facility]/MODL /[id number]
[2019-05-26] MEDS ORDERED: FENTANYL CITRATE/PF 100MCG/2 ML INJ ONE (17:48)
--- NOTE | 2019-05-26 19:20 | NUR ---
received patient aaox3, sitting up in bed, stable condition. patient denies needs at this time bed locked and in lowest position, call light within easy reach. will continue to monitor the patient.
--- NOTE | 2019-05-26 21:30 | NUR ---
assisted patient to restroom, and back to bed. patient remains in stable condition. denies further needs at this time. bed locked and in lowest position, call light within easy reach.
[2019-05-26] MEDS: CARVEDILOL 12.5 MG TAB PO SCH (21:55)
[2019-05-26] MEDS: TEMAZEPAM 15 MG CAP PO SCH (21:55)
[2019-05-26] MEDS: ATORVASTATIN 40 MG TAB PO SCH (21:55)
[2019-05-27] VITALS (8 sets, daily range): BP systolic 131–159; BP diastolic 63–71
--- NOTE | 2019-05-27 00:45 | NUR ---
walking rounds, patient resting with eyes closed. no distress observed.
[2019-05-27] MEDS: GUAIFENESIN/DEXTROMETHORPHAN LIQD 5 ML UDC PO PRN ×2 (05:22→14:08)
--- NOTE | 2019-05-27 06:12 | NUR ---
IM- progress note O/N no events ROS: no f/c/s/N/V/D/GRIGSBY/vision changes/dizziness/skin rash v/s: revd PE tired appearing anicteric ns1s2 reduced BS; scattered wheezing-mild soft nt nd no e/t skin dry n. affect a&ox2; mckeon labs/meds; revd A/P: 84yoF AECOPD Atypical CP Abnormal EKG with inverted T waves. CHAYA HTN HLD Depression Nicotine dependence in remission Obesity BMI 32 PreDM- Hba1c 5.7/LDL 91 Hx stroke PLAN doxy/steroids/antitussives/antihistamine; Pulm consult; cardiac enzymes; echo; lipid panel;cardio eval. screen for DM Add statin/ASA/BB/ccb/ARB Restart home meds; Pepcid/lovenox; Hba1c/LDL 5.7/91; Trace right pleural effusion; cont care; 05/25 plan for angio prior to d/c. 05/26 CXR negative; check labs; 05/27 cont care; Yakov Eaton MD, PhD.
[2019-05-27 06:17] LABS: BASOPHILS % 0.3 % (0.0-1.0); HEMOGLOBIN 10.8 g/dL (12.0-16.0); LYMPHOCYTES # (AUTO) 0.9 (1.0-3.2); LYMPHOCYTES % 8.6 % (18.0-39.1); MEAN CORPUSCULAR HGB CONC 32.7 g/dL (31-35); MEAN CORPUSCULAR VOLUME 97.9 fL (81-99); MONOCYTES # (AUTO) 0.5 (0.2-0.8); NEUTROPHILS # (AUTO) 8.4 (2.1-6.9); NEUTROPHILS % 84.1 % (38.7-80.0); PLATELET COUNT 278 x10e3/uL (140-360); RED BLOOD COUNT 3.37 x10e6/uL (3.6-5.1); RED CELL DISTRIBUTION WIDTH 13.7 % (11.7-14.4)
[2019-05-27] MEDS: ALBUTEROL/IPRATROPIUM 3 ML NEB NEB PRN ×3 (07:00→20:01)
[2019-05-27] MEDS: FLUTICASONE PROPIONATE NASAL SPRAY NS SCH (09:00)
[2019-05-27] MEDS: FLUOXETINE HCL 20 MG CAP PO SCH (10:00)
[2019-05-27] MEDS: BENZONATATE 100 MG CAP PO SCH ×3 (10:00→21:03)
[2019-05-27] MEDS: LORATADINE 10 MG TAB PO SCH (10:00)
[2019-05-27] MEDS: LOSARTAN POTASSIUM 100 MG TAB PO SCH (10:00)
[2019-05-27] MEDS: METHYLPREDNISOLONE SOD SUCC 40 MG/ML VIAL 1ML IV SCH ×2 (10:00→21:03)
[2019-05-27] MEDS: CARVEDILOL 12.5 MG TAB PO SCH ×2 (10:00→21:03)
[2019-05-27] MEDS: AMLODIPINE BESYLATE 10 MG TAB PO SCH (10:00)
[2019-05-27] MEDS: CEFTRIAXONE SOD 2 GM/NS 100 ML 100 ML IV SCH (10:00)
[2019-05-27] MEDS: FAMOTIDINE 20 MG TAB PO SCH (10:00)
--- NOTE | 2019-05-27 10:42 | NUR ---
PT OOB TO BSC, FAMILY AT SIDE, CALL LIGHT WITHIN REACH,
--- NOTE | 2019-05-27 11:15 | NUR ---
PT AMBULATING IN HALLWAY WITH WALKER, FAMILY AT SIDE
--- NOTE | 2019-05-27 13:19 | NUR ---
SITTING IN BS CHAIR, TOLERATING PO, MD Shahida ORTIZ INTO SEE PT, DISCUSSED POC Addendum: 05/27/19 at 1320 by Harriett Cardenas RN PT REPORTS TO MD Shahida ORTIZ THAT SHE IS STILL COUGHING UP BLOOD AND SMALL CLOTS
--- NOTE | 2019-05-27 13:52 | Progress Note ---
DATE: 05/27/2019 SUBJECTIVE: The patient underwent bronchoscopy yesterday. No endobronchial lesions were seen. She does have some bleeding from the lower lobes bilaterally in the area of the pneumonia. She has less hemoptysis today. PHYSICAL EXAMINATION: VITAL SIGNS: The patient is afebrile. The blood pressure is 155/70 and the saturation is 95% on 3 L. HEENT: Shows no facial swelling or erythema. CARDIAC: Reveals regular rate and rhythm with normal S1 and S2. There are no murmurs or rubs heard. LUNGS: Auscultation of lungs reveals clear breath sounds bilaterally. There is no wheezing. ABDOMEN: Soft, nontender. There is no rebound or guarding. EXTREMITIES: Show no leg edema. IMPRESSION: 1. Aspiration pneumonia with sepsis, present on admission. 2. Chronic obstructive pulmonary disease with acute exacerbation. 3. Chronic diastolic heart failure. 4. Hemoptysis. 5. Anemia, unspecified. PLAN: 1. Continue antibiotics. 2. Continue Solu-Medrol. 3. Continue oxygen. 4. Continue bronchodilators. 5. Check urinalysis for any hematuria. Keith Monteiro MD [facility]/MODL /[id number]
[2019-05-27] MEDS: AZITHROMYCIN 500MG/NS 250 ML 250 ML IV SCH (14:09)
--- NOTE | 2019-05-27 14:55 | NUR ---
NEW 20G TO LEFT WRIST BY CHARGE NURSE, PT TOLERATED WELL
--- NOTE | 2019-05-27 16:52 | Progress Note ---
DATE: 05/27/2019 Cardiology Progress Note. SUBJECTIVE: The patient feels mildly improved. Still reports shortness of breath and coughing up blood. She underwent bronchoscopy yesterday with some bleeding in the lower lobes bilaterally. OBJECTIVE: VITAL SIGNS: Temperature is 96.6, heart rate is 92, respirations are 20, blood pressure is 155/70, oxygen saturation 95% on 3L nasal cannula. GENERAL: Well-appearing and well-built, in no apparent distress. CARDIOVASCULAR: Regular rate and rhythm. Systolic murmur at the right sternal border. LUNGS: Scattered rhonchi throughout both lung foster. ABDOMEN: Soft, nontender, nondistended. EXTREMITIES: Trace edema. NEUROLOGIC: No focal deficits noted. CARDIOVASCULAR MEDICATIONS: Reviewed. LABORATORY DATA: Reviewed. TELEMETRY: Monitoring showed normal sinus rhythm. IMPRESSION: 1. Aspiration pneumonia. 2. Hemoptysis. 3. Chronic obstructive pulmonary disease. 4. Acute on chronic diastolic heart failure. 5. Coronary artery disease. 6. Chest pain. RECOMMENDATIONS: Continue ongoing treatment for her hemoptysis and pneumonia. Given her significant risk factors, she will require coronary angiography prior to discharge. Continue all current cardiovascular medications and maintain on telemetry monitoring. DO KIAH Calles/MODL /[id number]
[2019-05-27 18:34] LABS: BILIRUBIN,URINE NEGATIVE (NEGATIVE); CLARITY,URINE CLEAR (CLEAR); COLOR,URINE YELLOW (YELLOW); KETONES,URINE NEGATIVE (NEGATIVE); LEUKOCYTE ESTERASE ,URINE TRACE (NEGATIVE); NITRITE,URINE NEGATIVE (NEGATIVE); PROTEIN,URINE DIPSTICK NEGATIVE (NEGATIVE); URINE UROBILINOGEN 0.2 mg/dL (0.2 - 1)
[2019-05-27 18:37] LABS: BACTERIA,URINE RARE /HPF; EPITHELIAL CELLS,URINE RARE /LPF; RBC,URINE 0-5 /HPF (0-5); WBC,URINE (MAN) 0-5 /HPF (0-5)
--- NOTE | 2019-05-27 18:54 | NUR ---
WALKING ROUNDS PERFORMED, RECEIVED PT LAYING SEMI FOWLERS IN BED, AAOX3, RR EVEN AND NON-LABORED, O2 BY NC AT 3L. NO S/SX OF DISTRESS NOTED. LEFT PT LAYING SEMI FOWLERS IN BED, BED IN LOW LOCKED POSITION, SIDE RAILS UPX2, CALL LIGHT AND PHONE WITHIN REACH.
[2019-05-27] MEDS: ATORVASTATIN 40 MG TAB PO SCH (21:03)
[2019-05-27] MEDS: TEMAZEPAM 15 MG CAP PO SCH (21:03)
[2019-05-28] VITALS (7 sets, daily range): BP systolic 137–186; BP diastolic 64–78
[2019-05-28] MEDS: ALBUTEROL/IPRATROPIUM 3 ML NEB NEB PRN ×4 (00:50→19:21)
[2019-05-28] MEDS: GUAIFENESIN/DEXTROMETHORPHAN LIQD 5 ML UDC PO PRN (00:56)
--- NOTE | 2019-05-28 05:10 | NUR ---
IM- progress note O/N no events ROS: no f/c/s/N/V/D/GRIGSBY/vision changes/dizziness/skin rash v/s: revd PE tired appearing anicteric ns1s2 reduced BS; scattered wheezing-mild soft nt nd no e/t skin dry n. affect a&ox2; mckeon labs/meds; revd A/P: 84yoF AECOPD Atypical CP Abnormal EKG with inverted T waves. CHAYA HTN HLD Depression Nicotine dependence in remission Obesity BMI 32 PreDM- Hba1c 5.7/LDL 91 Hx stroke PLAN doxy/steroids/antitussives/antihistamine; Pulm consult; cardiac enzymes; echo; lipid panel;cardio eval. screen for DM Add statin/ASA/BB/ccb/ARB Restart home meds; Pepcid/lovenox; Hba1c/LDL 5.7/91; Trace right pleural effusion; cont care; 05/25 plan for angio prior to d/c. 05/26 CXR negative; check labs; 05/27 cont care; 05/28 s/p bronch; d/c planning; SNF eval Yakov Eaton MD, PhD.
[2019-05-28] MEDS: FLUTICASONE PROPIONATE NASAL SPRAY NS SCH (09:00)
[2019-05-28] MEDS: LORATADINE 10 MG TAB PO SCH (10:00)
[2019-05-28] MEDS: CEFTRIAXONE SOD 2 GM/NS 100 ML 100 ML IV SCH (10:00)
[2019-05-28] MEDS: CARVEDILOL 12.5 MG TAB PO SCH ×2 (10:00→21:43)
[2019-05-28] MEDS: FLUOXETINE HCL 20 MG CAP PO SCH (10:00)
[2019-05-28] MEDS: BENZONATATE 100 MG CAP PO SCH ×3 (10:00→21:43)
[2019-05-28] MEDS: METHYLPREDNISOLONE SOD SUCC 40 MG/ML VIAL 1ML IV SCH ×2 (10:00→21:43)
[2019-05-28] MEDS: LOSARTAN POTASSIUM 100 MG TAB PO SCH (10:00)
[2019-05-28] MEDS: AMLODIPINE BESYLATE 10 MG TAB PO SCH (10:00)
[2019-05-28] MEDS: FAMOTIDINE 20 MG TAB PO SCH (10:00)
[2019-05-28] MEDS: GUAIFENESIN/DEXTROMETHORPHAN LIQD 5 ML UDC PO SCH ×2 (10:15→21:43)
--- NOTE | 2019-05-28 11:16 | Progress Note ---
DATE: 05/28/2019 SUBJECTIVE: The patient complains of some dyspnea last night. The patient had wheezing. She still has some cough. She is still concerned about blood mixed in phlegm when she coughs. PHYSICAL EXAMINATION: VITAL SIGNS: The patient is afebrile. The vital signs are stable. HEENT: Shows no facial swelling or erythema. The nasal mucosa is normal. CARDIAC: Reveals a regular rate and rhythm with normal S1 and S2. There are no murmurs or rubs. LUNGS: Auscultation of lungs reveals a few wheezes bilaterally. ABDOMEN: Soft, nontender. There is no rebound or guarding. EXTREMITIES: Show no leg edema or calf tenderness. IMPRESSION: 1. Aspiration pneumonia with sepsis present on admission. 2. Chronic obstructive pulmonary disease. 3. Acute on chronic diastolic heart failure. 4. Hemoptysis. 5. Anemia, unspecified. PLAN: 1. Continue Solu-Medrol and antibiotics. 2. CT scan of the chest with IV contrast and a pulmonary angiogram protocol. 3. Wean oxygen. 4. Continue current cardiac regimen. Keith Monteiro MD LM/MODL /[id number]
[2019-05-28 12:55] LABS: ANION GAP 13.3 mmol/L (8-16); BLOOD UREA NITROGEN 26 mg/dL (7-26); BUN/CREATININE RATIO 37 (6-25); CALCIUM 8.4 mg/dL (8.4-10.2); CARBON DIOXIDE 25 mmol/L (22-29); CHLORIDE 103 mmol/L (98-107); CREATININE, SERUM 0.71 mg/dL (0.57-1.11); EST GLOMERULAR FILTRATION RATE > 60 ML/MIN (60-); GLUCOSE 125 mg/dL (74-118); POTASSIUM 4.3 mmol/L (3.5-5.1); SODIUM 137 mmol/L (136-145)
[2019-05-28] MEDS: AZITHROMYCIN 500MG/NS 250 ML 250 ML IV SCH (14:45)
--- NOTE | 2019-05-28 15:03 | Diagnostic Imaging Report ---
CT CHEST WITH CONTRAST HISTORY: Persistent Hemoptysis - Pulmonary embolism protocol COMPARISON: None available. TECHNIQUE: CT scan of the chest WITH intravenous contrast, using PE protocol. The chest was scanned utilizing a multidetector helical scanner from the lung apex through the level of the adrenal glands. Thin section reconstructions were obtained with special concentration on the pulmonary arteries. IV CONTRAST: 100 cc of Isovue-370. PROTOCOL: PE RADIATION DOSE: Total DLP: 498.77 mGy*cm Dose modulation, iterative reconstruction, and/or weight based adjustment of the mA/kV was utilized to reduce the radiation dose to as low as reasonably achievable. COMPLICATIONS: None DISCUSSION: Lungs: Upper lobe predominant centrilobular emphysema. Geographic areas of increased interstitial and airspace opacities, most notably in similar regions as the emphysematous changes. Vessels: No filling defects are identified within the pulmonary arteries to the segmental levels. Mild enlargement of the right and left pulmonary arteries. Scattered atherosclerotic vascular calcifications, including the coronary arteries. Airways: Diffuse bronchial wall thickening with areas of intraluminal debris within small bronchi of the lower lobes. Pleura: No pleural effusion or pneumothorax. Heart and mediastinum: Unremarkable Abdomen: Limited evaluation of the upper abdomen. Partially visualized 1 cm fluid density within the left lobe of the liver. Lymph nodes: No pathologically enlarged lymph node. Bones: No acute bone abnormality. Accentuation of the thoracic kyphosis. Mild to moderate multilevel degenerative disc changes. Soft tissues: Unremarkable IMPRESSION: 1. No pulmonary embolus identified. 2. Findings consistent with pulmonary hemorrhage. 3. Nonspecific bronchitis with intraluminal mucus, blood products, and/or aspirated. 4. Emphysematous changes. 5. Findings suggestive of increased pulmonary pressure. 6. Coronary atherosclerosis. Signed by: Dr. Brant Barton D.O., M.M.M. on 05/28/2019 3:00 PM
--- NOTE | 2019-05-28 15:13 | Progress Note ---
DATE: 05/28/2019 Cardiology Progress Note SUBJECTIVE: The patient reports shortness of breath. OBJECTIVE: VITAL SIGNS: Temperature is 96.1, heart rate is 83, respirations are 20, blood pressure is 186/76 with prior blood pressure of 140/65, oxygen saturation 96% on 3 L nasal cannula. GENERAL: She is a well-appearing elderly woman, seated at bedside. HEAD: Normocephalic, atraumatic. CARDIOVASCULAR: Regular rate and rhythm. LUNGS: Scattered rhonchi throughout all lung foster. ABDOMEN: Soft, nontender, nondistended. EXTREMITIES: No edema. CARDIOVASCULAR MEDICATIONS: Reviewed. LABORATORY DATA: Reviewed. TELEMETRY: Monitoring revealed normal sinus rhythm. IMPRESSION: 1. Aspiration pneumonia. 2. Hemoptysis. 3. Chronic obstructive pulmonary disease. 4. Bmkwh-yk-dhpqimi diastolic heart failure. 5. Coronary artery disease. 6. Chest pain. RECOMMENDATIONS: The CT angiogram of the chest has been ordered. We will review this once has been resulted. Continue all other ongoing treatments for her hemoptysis and pneumonia. The patient will require coronary angiography once her respiratory status has improved. Dashawn Meek DO [facility] /[id number]
--- NOTE | 2019-05-28 15:30 | NUR ---
SITTING IN BS CHAIR, CALL LIGHT WITHIN REACH
--- NOTE | 2019-05-28 16:47 | NUR ---
SPOKE WITH MD Shahida ORTIZ, MADE AWARE OF CT CHEST RESULTS, NO NEW ORDERS AT THIS TIME
[2019-05-28] MEDS ORDERED: FAMOTIDINE 20 MG/2 ML VIAL IV SCH (17:00)
--- NOTE | 2019-05-28 17:30 | NUR ---
SITTING IN BS CHAIR, TOLERATING PO, PT CONTINUES TO COUGH WITH BLOODY SPUTUM, VOICES NO NEEDS AT THIS TIME, CALL LIGHT WITHIN REACH
[2019-05-28] MEDS ORDERED: SODIUM CHLORIDE 0.9% 50ML 50 ML ONE (18:19)
[2019-05-28] MEDS ORDERED: IOPAMIDOL 370 MG/ML 200 ML INFUS..BTL INJ ONE (18:20)
[2019-05-28 18:50] LABS: INR 0.98; PROTHROMBIN TIME 13.5 seconds (11.9-14.5)
[2019-05-28 18:57] LABS: BASOPHILS % 0.3 % (0.0-1.0); HEMATOCRIT 35.3 % (34.2-44.1); HEMOGLOBIN 11.8 g/dL (12.0-16.0); LYMPHOCYTES # (AUTO) 0.8 (1.0-3.2); LYMPHOCYTES % 6.7 % (18.0-39.1); MEAN CORPUSCULAR HEMOGLOBIN 32.4 pg (28-32); MEAN CORPUSCULAR HGB CONC 33.4 g/dL (31-35); MONOCYTES # (AUTO) 0.7 (0.2-0.8); MONOCYTES % 5.7 % (4.4-11.3); NEUTROPHILS # (AUTO) 9.7 (2.1-6.9); NEUTROPHILS % 84.8 % (38.7-80.0); PLATELET COUNT 334 x10e3/uL (140-360); RED BLOOD COUNT 3.64 x10e6/uL (3.6-5.1); RED CELL DISTRIBUTION WIDTH 13.4 % (11.7-14.4)
--- NOTE | 2019-05-28 18:57 | NUR ---
WALKING ROUNDS PERFORMED, RECEIVED PT LAYING SEMI FOWLERS IN BED, AAOX3, HEMOPTYSIS NOTED WITH COURSE COUGH. O2 BY NC AT 2L. LEFT PT LAYING SEMI FOWLERS IN BED, BED IN LOW LOCKED POSITION, SIDE RAILS UPX2, CALL LIGHT AND PHONE WITHIN REACH.
[2019-05-28 20:18] LABS: LYMPHOCYTES % (MANUAL) 3 % (19-48); MONOCYTES % (MANUAL) 5 % (3.4-9.0); NEUTROPHILS % (MANUAL) 92 % (40-74)
[2019-05-28 20:19] LABS: PLATELET ESTIMATE ADEQUATE; PLATELET MORPHOLOGY COMMENT NORMAL; RBC MORPHOLOGY COMMENT NORMAL
[2019-05-28] MEDS: ATORVASTATIN 40 MG TAB PO SCH (21:43)
[2019-05-28] MEDS: FAMOTIDINE 20 MG/2 ML VIAL IV SCH (21:43)
[2019-05-28] MEDS: TEMAZEPAM 15 MG CAP PO SCH (21:43)
[2019-05-29] VITALS (8 sets, daily range): BP systolic 111–169; BP diastolic 56–89
[2019-05-29] MEDS: ALBUTEROL/IPRATROPIUM 3 ML NEB NEB PRN ×3 (03:09→14:30)
[2019-05-29] MEDS: GUAIFENESIN/DEXTROMETHORPHAN LIQD 5 ML UDC PO SCH ×3 (05:44→22:04)
--- NOTE | 2019-05-29 06:35 | NUR ---
IM- progress note O/N no events ROS: no f/c/s/N/V/D/GRIGSBY/vision changes/dizziness/skin rash v/s: revd PE tired appearing anicteric ns1s2 reduced BS; scattered wheezing-mild soft nt nd no e/t skin dry n. affect a&ox2; mckeon labs/meds; revd A/P: 84yoF AECOPD Atypical CP Abnormal EKG with inverted T waves. CHAYA HTN HLD Depression Nicotine dependence in remission Obesity BMI 32 PreDM- Hba1c 5.7/LDL 91 Hx stroke PLAN doxy/steroids/antitussives/antihistamine; Pulm consult; cardiac enzymes; echo; lipid panel;cardio eval. screen for DM Add statin/ASA/BB/ccb/ARB Restart home meds; Pepcid/lovenox; Hba1c/LDL 5.7/91; Trace right pleural effusion; cont care; 05/25 plan for angio prior to d/c. 05/26 CXR negative; check labs; 05/27 cont care; 05/28 s/p bronch; d/c planning; SNF eval 05/29 Pumonary hemorrhage; cont current care; Yakov Eaton MD, PhD.
[2019-05-29] MEDS: FLUTICASONE PROPIONATE NASAL SPRAY NS SCH (09:00)
[2019-05-29] MEDS: FAMOTIDINE 20 MG/2 ML VIAL IV SCH ×2 (09:34→20:40)
[2019-05-29] MEDS: FLUOXETINE HCL 20 MG CAP PO SCH (09:34)
[2019-05-29] MEDS: CARVEDILOL 12.5 MG TAB PO SCH ×2 (09:34→20:41)
[2019-05-29] MEDS: LORATADINE 10 MG TAB PO SCH (09:34)
[2019-05-29] MEDS: CEFTRIAXONE SOD 2 GM/NS 100 ML 100 ML IV SCH (09:34)
[2019-05-29] MEDS: LOSARTAN POTASSIUM 100 MG TAB PO SCH (09:34)
[2019-05-29] MEDS: AMLODIPINE BESYLATE 10 MG TAB PO SCH (09:34)
[2019-05-29] MEDS: BENZONATATE 100 MG CAP PO SCH ×3 (09:34→20:41)
[2019-05-29] MEDS: PANTOPRAZOLE 40 MG 10ML VIAL IV SCH (09:39)
[2019-05-29] MEDS: METHYLPREDNISOLONE SOD SUCC 125 MG/2ML VIAL IV SCH ×2 (09:39→20:40)
--- NOTE | 2019-05-29 10:01 | Progress Note ---
DATE: 05/29/2019 Pulmonary Critical Care Progress Note SUBJECTIVE: The patient still reports some coughing. She has small amounts of hemoptysis mixed with phlegm. She does not complain of chest pain. PHYSICAL EXAMINATION: VITAL SIGNS: Blood pressure is 162/67, saturation is 88%. She is on 3 L. HEENT: Shows no facial swelling or erythema. CARDIAC: Reveals a regular rate and rhythm with normal S1, S2. There are no murmurs or rubs heard. LUNGS: Auscultation of lungs reveals clear breath sounds bilaterally. There is no wheezing. ABDOMEN: Soft, nontender. There is no rebound or guarding. EXTREMITIES: Show no leg edema or calf tenderness. IMPRESSION: 1. Aspiration pneumonia with sepsis, present on admission. 2. Chronic obstructive pulmonary disease. 3. Ylxmc-tk-dnrfxsb diastolic heart failure. 4. Hemoptysis. 5. Anemia, unspecified. PLAN: 1. Increase Solu-Medrol to 60 mg b.i.d. 2. Wean oxygen as tolerated. 3. Continue treatment for any acid reflux, worsening coughing. 4. Nasal sprays to decrease postnasal drainage. 5. Serologies for vasculitis tomorrow. 6. Repeat urinalysis. Keith Monteiro MD [facility]/[place] /[id number]
[2019-05-29] MEDS: OXYMETAZOLINE HCL 0.05% NAS 1 SPRAY BTL SCH ×2 (11:00→19:39)
--- NOTE | 2019-05-29 11:10 | NUR ---
Spoke to pt and daughters at bedside regarding order for SNF. Gave them list of in network facilities. Daughter states she knows about [facility] and liked it, but will go look at a few facilities and let us know where to send referral. CM's business card was given to pt's daughter.
--- NOTE | 2019-05-29 13:36 | NUR ---
refused at 1100, check on pt later Addendum: 05/29/19 at 1337 by John Joseph PTA Amended: Links added.
[2019-05-29] MEDS: AZITHROMYCIN 500MG/NS 250 ML 250 ML IV SCH (14:06)
--- NOTE | 2019-05-29 15:23 | NUR ---
pt and daughter deferring tx today due to feeling really bad and has a severe cough, nurse is aware ..f/u tomorro Addendum: 05/29/19 at 1524 by John Joseph PTA Amended: Links added.
--- NOTE | 2019-05-29 19:09 | NUR ---
Report received from STEPHANI Burks. Pt sitting in chair at bedside at this time. Pt family at bedside. Will continue to monitor.
[2019-05-29] MEDS: ATORVASTATIN 40 MG TAB PO SCH (20:41)
[2019-05-29] MEDS ORDERED: TEMAZEPAM 15 MG CAP PO ONE (22:45)
[2019-05-30] VITALS (8 sets, daily range): BP systolic 127–155; BP diastolic 60–64
[2019-05-30] MEDS: GUAIFENESIN/DEXTROMETHORPHAN LIQD 5 ML UDC PO SCH ×2 (05:51→14:51)
--- NOTE | 2019-05-30 06:58 | NUR ---
IM- progress note O/N no events ROS: no f/c/s/N/V/D/GRIGSBY/vision changes/dizziness/skin rash v/s: revd PE tired appearing anicteric ns1s2 reduced BS; scattered wheezing-mild soft nt nd no e/t skin dry n. affect a&ox2; mckeon labs/meds; revd A/P: 84yoF AECOPD Atypical CP Abnormal EKG with inverted T waves. CHAYA HTN HLD Depression Nicotine dependence in remission Obesity BMI 32 PreDM- Hba1c 5.7/LDL 91 Hx stroke PLAN doxy/steroids/antitussives/antihistamine; Pulm consult; cardiac enzymes; echo; lipid panel;cardio eval. screen for DM Add statin/ASA/BB/ccb/ARB Restart home meds; Pepcid/lovenox; Hba1c/LDL 5.7/91; Trace right pleural effusion; cont care; 05/25 plan for angio prior to d/c. 05/26 CXR negative; check labs; 05/27 cont care; 05/28 s/p bronch; d/c planning; SNF eval 05/29 Pumonary hemorrhage; cont current care; 05/30 steroid titrated up; Yakov Eaton MD, PhD.
[2019-05-30] MEDS: ALBUTEROL/IPRATROPIUM 3 ML NEB NEB PRN ×4 (07:00→19:25)
--- NOTE | 2019-05-30 07:10 | NUR ---
Bedside report given to STEPHANI Schwarz at this time. Pt sitting at side of bed in no apparent distress. Nasal cannula is in place at 4L. Pt has call light in reach.
--- NOTE | 2019-05-30 07:19 | NUR ---
Received patient sitting at the side of the bed. Awake and alert. respiration even and unlabored. Call light within reach.
[2019-05-30] MEDS: FLUTICASONE PROPIONATE NASAL SPRAY NS SCH (09:00)
[2019-05-30] MEDS: PANTOPRAZOLE 40 MG 10ML VIAL IV SCH (09:11)
[2019-05-30] MEDS: LORATADINE 10 MG TAB PO SCH (09:11)
[2019-05-30] MEDS: CEFTRIAXONE SOD 2 GM/NS 100 ML 100 ML IV SCH (09:11)
[2019-05-30] MEDS: FAMOTIDINE 20 MG/2 ML VIAL IV SCH ×2 (09:11→20:37)
[2019-05-30] MEDS: METHYLPREDNISOLONE SOD SUCC 125 MG/2ML VIAL IV SCH ×2 (09:11→20:37)
[2019-05-30] MEDS: OXYMETAZOLINE HCL 0.05% NAS 1 SPRAY BTL SCH ×2 (09:11→19:34)
[2019-05-30] MEDS: CARVEDILOL 12.5 MG TAB PO SCH ×2 (09:11→20:37)
[2019-05-30] MEDS: AMLODIPINE BESYLATE 10 MG TAB PO SCH (09:12)
[2019-05-30] MEDS: FLUOXETINE HCL 20 MG CAP PO SCH (09:12)
[2019-05-30] MEDS: LOSARTAN POTASSIUM 100 MG TAB PO SCH (09:12)
[2019-05-30] MEDS: BENZONATATE 100 MG CAP PO SCH ×3 (09:12→20:37)
--- NOTE | 2019-05-30 12:04 | NUR ---
COMPLETED RTF AND PASRR FOR PT HANDED TO REP TO TAKE TO FACILITY FOR APPROVAL
[2019-05-30] MEDS: AZITHROMYCIN 500MG/NS 250 ML 250 ML IV SCH (14:51)
--- NOTE | 2019-05-30 15:15 | NUR ---
Nutrition Screen Note RD Recommendation for Physician: - Continue current diet, texture restrictions per PLASTER AND STUCCO WORKER. Plan of Care: RD following, monitoring for tolerance and adequacy Nutrition reason for involvement: LOS Primary Diagnose(s): chest pain PMH: HLD, HTN, stroke, OA, diverticulosis, mild dementia, cholecystectomy Ht: 62 in Wt: 188.56 lb BMI: 34.5 kg/m2 IBW: [address] Assessment: (05/30) 84 YOF admitted for chest pain seen today for LOS. 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 Pt reports hx of difficulties chewing and swallowing, has seen an PLASTER AND STUCCO WORKER previously, and eats a chopped diet at home. Pt reports no difficulties tolerating current diet texture. PLASTER AND STUCCO WORKER following, evaluation pending. Pt denies wt loss, reports UBW of 154-174#. Chart reviewed. Labs and meds reviewed. LBM 05/30. Will monitor and continue to follow. Current Diet: 1800 ADA Malnutrition Evaluation (05/30/19) The patient does not meet criteria for a specified degree of malnutrition at this time. Will re-evaluate at follow-up as appropriate. Diet Education Needs Assessment: Diet education not indicated at this time. Nutrition Care Level: Low Signed: Corrine Michael RD, LD, [facility]
--- NOTE | 2019-05-30 17:04 | Progress Note ---
DATE: 05/30/2019 SUBJECTIVE: The patient still has some coughing. She has less hemoptysis. She does not complain of dyspnea or fevers. PHYSICAL EXAMINATION: VITAL SIGNS: The patient is afebrile. The blood pressure is 127/61, saturation is 92% on 4 L. HEENT: Shows no facial swelling or erythema. The oropharynx is normal. LYMPHATIC: Shows no submandibular, cervical, or supraclavicular adenopathy. CARDIAC: Reveals a regular rate and rhythm with normal S1 and S2. LUNGS: Auscultation of lungs reveals clear breath sounds bilaterally. There is no wheezing. ABDOMEN: Soft, nontender. There is no rebound or guarding. EXTREMITIES: Show no leg edema or calf tenderness. There is no cyanosis or clubbing. SKIN: Shows no rashes. IMPRESSION: 1. Chronic obstructive pulmonary disease. 2. Eclii-dz-ovtetzc diastolic heart failure. 3. Aspiration pneumonia. 4. Anemia. PLAN: 1. Continue Solu-Medrol and antibiotics. 2. Continue cough suppressants. 3. Nasal sprays. 4. Out of bed as tolerated with physical therapy. Keith Monteiro MD [facility] /[id number]
--- NOTE | 2019-05-30 18:36 | NUR ---
Patient awake, alert, ambulating in the hallway assisted by her daughter. Nonskid socks on. respiration even and unlabored without SOB.
[2019-05-30] MEDS: GUAIFENESIN/CODEINE 10 ML CUP PO PRN (19:38)
[2019-05-30] MEDS: ATORVASTATIN 40 MG TAB PO SCH (20:37)
[2019-05-30] MEDS: TEMAZEPAM 15 MG CAP PO SCH (22:15)
[2019-05-31] MEDS: GUAIFENESIN/CODEINE 10 ML CUP PO PRN ×4 (03:17→22:48)
[2019-05-31 04:02] VITALS: BP 159/71
--- NOTE | 2019-05-31 06:11 | NUR ---
IM- progress note O/N no events ROS: no f/c/s/N/V/D/GRIGSBY/vision changes/dizziness/skin rash v/s: revd PE tired appearing anicteric ns1s2 reduced BS; scattered wheezing-mild soft nt nd no e/t skin dry n. affect a&ox2; mckeon labs/meds; revd A/P: 84yoF AECOPD Atypical CP Abnormal EKG with inverted T waves. CHAYA HTN HLD Depression Nicotine dependence in remission Obesity BMI 32 PreDM- Hba1c 5.7/LDL 91 Hx stroke PLAN doxy/steroids/antitussives/antihistamine; Pulm consult; cardiac enzymes; echo; lipid panel;cardio eval. screen for DM Add statin/ASA/BB/ccb/ARB Restart home meds; Pepcid/lovenox; Hba1c/LDL 5.7/91; Trace right pleural effusion; cont care; 05/25 plan for angio prior to d/c. 05/26 CXR negative; check labs; 05/27 cont care; 05/28 s/p bronch; d/c planning; SNF eval 05/29 Pumonary hemorrhage; cont current care; 05/30 steroid titrated up; 05/31 snf eval Yakov Eaton MD, PhD.
[2019-05-31 07:34] VITALS: BP 188/84
[2019-05-31] MEDS: ALBUTEROL/IPRATROPIUM 3 ML NEB NEB PRN ×2 (08:00→13:25)
[2019-05-31] MEDS: PANTOPRAZOLE 40 MG 10ML VIAL IV SCH (10:42)
[2019-05-31] MEDS: FLUTICASONE PROPIONATE NASAL SPRAY NS SCH (10:42)
[2019-05-31] MEDS: BENZONATATE 100 MG CAP PO SCH ×3 (10:42→20:49)
[2019-05-31] MEDS: AMLODIPINE BESYLATE 10 MG TAB PO SCH (10:42)
[2019-05-31] MEDS: FLUOXETINE HCL 20 MG CAP PO SCH (10:42)
[2019-05-31] MEDS: FAMOTIDINE 20 MG/2 ML VIAL IV SCH ×2 (10:42→20:48)
[2019-05-31] MEDS: OXYMETAZOLINE HCL 0.05% NAS 1 SPRAY BTL SCH ×2 (10:42→19:54)
[2019-05-31] MEDS: CARVEDILOL 12.5 MG TAB PO SCH ×2 (10:42→20:49)
[2019-05-31] MEDS: METHYLPREDNISOLONE SOD SUCC 125 MG/2ML VIAL IV SCH ×2 (10:42→20:48)
[2019-05-31] MEDS: LOSARTAN POTASSIUM 100 MG TAB PO SCH (10:42)
[2019-05-31] MEDS: LORATADINE 10 MG TAB PO SCH (10:42)
[2019-05-31] MEDS: CEFTRIAXONE SOD 2 GM/NS 100 ML 100 ML IV SCH (10:45)
[2019-05-31 11:40] VITALS: BP 185/78
[2019-05-31 12:14] VITALS: BP 185/78
[2019-05-31] MEDS: AZITHROMYCIN 500MG/NS 250 ML 250 ML IV SCH (14:18)
[2019-05-31 15:42] VITALS: BP 132/70
--- NOTE | 2019-05-31 16:05 | Progress Note ---
DATE: 05/31/2019 SUBJECTIVE: The patient still has some coughing, but no hemoptysis. She has some mild wheezing. She reports thrush in her mouth. PHYSICAL EXAMINATION: VITAL SIGNS: The patient is afebrile. The vital signs are stable. HEENT: Shows no facial swelling or erythema. CARDIAC: Reveals regular rate and rhythm with normal S1 and S2. There are no murmurs or rubs heard. PULMONARY: Auscultation of lungs reveal crackles bilaterally. There is no wheezing. ABDOMEN: Soft and nontender. There is no rebound or guarding. EXTREMITIES: There is no leg edema or calf tenderness. There is no cyanosis or clubbing. IMPRESSION: 1. Oral candidiasis. 2. Chronic obstructive pulmonary disease with acute exacerbation. 3. Acute on chronic diastolic heart failure. 4. Aspiration pneumonia. 5. Anemia. PLAN: 1. Diflucan. 2. Continue antibiotics. 3. Continue Solu-Medrol and cough suppressants. 4. Out of bed with physical therapy. Keith Monteiro MD [facility] /[id number]
[2019-05-31] MEDS: FLUCONAZOLE 100 MG/NS 50 ML 50 ML IV SCH (17:20)
--- NOTE | 2019-05-31 19:05 | NUR ---
pt sitting upright in chair, daughter at bedside, pt in no apparent distress, call light within reach.
--- NOTE | 2019-05-31 19:30 | NUR ---
Report received from STEPHANI Galan. Pt is sitting in chair at bedside at this time in no apparent distress. Pt daughter is at bedside. Pt has no c/o pain at this time. Call light is in reach of pt. Will continue to monitor.
[2019-05-31 20:00] VITALS: BP 159/66
[2019-05-31] MEDS: ATORVASTATIN 40 MG TAB PO SCH (20:49)
[2019-05-31] MEDS: TEMAZEPAM 15 MG CAP PO SCH (22:48)
[2019-06-01] VITALS (9 sets, daily range): BP systolic 132–176; BP diastolic 65–79
[2019-06-01 06:06] LABS: BASOPHILS % 0.3 % (0.0-1.0); HEMATOCRIT 32.7 % (34.2-44.1); HEMOGLOBIN 10.9 g/dL (12.0-16.0); LYMPHOCYTES # (AUTO) 0.5 (1.0-3.2); LYMPHOCYTES % 4.7 % (18.0-39.1); MEAN CORPUSCULAR HEMOGLOBIN 32.2 pg (28-32); MEAN CORPUSCULAR HGB CONC 33.3 g/dL (31-35); MEAN CORPUSCULAR VOLUME 96.7 fL (81-99); MONOCYTES # (AUTO) 0.6 (0.2-0.8); MONOCYTES % 5.6 % (4.4-11.3); NEUTROPHILS % 84.8 % (38.7-80.0); PLATELET COUNT 275 x10e3/uL (140-360); RED BLOOD COUNT 3.38 x10e6/uL (3.6-5.1); RED CELL DISTRIBUTION WIDTH 13.4 % (11.7-14.4)
--- NOTE | 2019-06-01 06:13 | NUR ---
IM- progress note O/N no events ROS: no f/c/s/N/V/D/GRIGSBY/vision changes/dizziness/skin rash v/s: revd PE tired appearing anicteric ns1s2 reduced BS; scattered wheezing-mild soft nt nd no e/t skin dry n. affect a&ox2; mckeon labs/meds; revd A/P: 84yoF AECOPD Atypical CP Abnormal EKG with inverted T waves. CHAYA HTN HLD Depression Nicotine dependence in remission Obesity BMI 32 PreDM- Hba1c 5.7/LDL 91 Hx stroke PLAN doxy/steroids/antitussives/antihistamine; Pulm consult; cardiac enzymes; echo; lipid panel;cardio eval. screen for DM Add statin/ASA/BB/ccb/ARB Restart home meds; Pepcid/lovenox; Hba1c/LDL 5.7/91; Trace right pleural effusion; cont care; 05/25 plan for angio prior to d/c. 05/26 CXR negative; check labs; 05/27 cont care; 05/28 s/p bronch; d/c planning; SNF eval 05/29 Pumonary hemorrhage; cont current care; 05/30 steroid titrated up; 05/31 snf eval 06/01 cont care. Yakov Eaton MD, PhD.
[2019-06-01] MEDS: ALBUTEROL/IPRATROPIUM 3 ML NEB NEB PRN ×3 (06:50→19:55)
--- NOTE | 2019-06-01 07:06 | NUR ---
shift change report received from weight shifter RN, pt resting in bed, semi-fowlers, no distress noted, awake, alert, oriented, call light within reach, will CTA
[2019-06-01] MEDS: FAMOTIDINE 20 MG/2 ML VIAL IV SCH ×2 (09:15→21:03)
[2019-06-01] MEDS: CARVEDILOL 12.5 MG TAB PO SCH ×2 (09:15→21:03)
[2019-06-01] MEDS: PANTOPRAZOLE 40 MG 10ML VIAL IV SCH (09:15)
[2019-06-01] MEDS: LOSARTAN POTASSIUM 100 MG TAB PO SCH (09:15)
[2019-06-01] MEDS: FLUTICASONE PROPIONATE NASAL SPRAY NS SCH (09:15)
[2019-06-01] MEDS: OXYMETAZOLINE HCL 0.05% NAS 1 SPRAY BTL SCH (09:15)
[2019-06-01] MEDS: FLUOXETINE HCL 20 MG CAP PO SCH (09:15)
[2019-06-01] MEDS: LORATADINE 10 MG TAB PO SCH (09:15)
[2019-06-01] MEDS: GUAIFENESIN/CODEINE 10 ML CUP PO PRN (09:15)
[2019-06-01] MEDS: METHYLPREDNISOLONE SOD SUCC 125 MG/2ML VIAL IV SCH ×2 (09:15→21:03)
[2019-06-01] MEDS: AMLODIPINE BESYLATE 10 MG TAB PO SCH (09:15)
[2019-06-01] MEDS: BENZONATATE 100 MG CAP PO SCH ×3 (09:15→21:04)
[2019-06-01] MEDS: HYDROCODONE/CHLORPHENIRAMINE 5 ML LIQCR PO PRN (14:06)
[2019-06-01] MEDS: FLUCONAZOLE 100 MG/NS 50 ML 50 ML IV SCH (15:44)
[2019-06-01] MEDS: AZITHROMYCIN 500MG/NS 250 ML 250 ML IV SCH (16:14)
--- NOTE | 2019-06-01 18:45 | NUR ---
Received bedside report from RN. The patient is sitting up on the bed, not in distress and reported no pain. Bed height low, side rails up x2, call light within reach and wheels lock. Daughter is at bedside
--- NOTE | 2019-06-01 18:53 | Progress Note ---
DATE: 06/01/2019 SUBJECTIVE: The patient feels better. She has less cough and less congestion. OBJECTIVE: VITAL SIGNS: The patient is afebrile. CARDIAC: Reveals a regular rate and rhythm with normal S1, S2. LUNGS: Auscultation of lungs reveals clear breath sounds bilaterally. There is no wheezing. ABDOMEN: Soft and nontender. There is no rebound or guarding. EXTREMITIES: Show no leg edema or calf tenderness. There is no cyanosis, clubbing. SKIN: Shows no rashes. NEUROLOGICAL: Shows no focal abnormalities. IMPRESSION: 1. Chronic obstructive pulmonary disease with acute exacerbation. 2. Resolving aspiration pneumonia. 3. Coronary artery disease. PLAN: 1. The patient will continue azithromycin along with Solu-Medrol and bronchodilators. 2. Continue Tussionex cough syrup. 3. Cardiology is planning a cardiac catheterization. MD RAFFI Chirinos/[place] /[id number]
--- NOTE | 2019-06-01 19:25 | NUR ---
shift change report given to oncoming shift supervisor rn RN, pt laying in bed in semi-fowlers position, in no distress, respirations even and nonlabored, call light within reach, daughter at bedside, pt in stable condition.
[2019-06-01] MEDS: ATORVASTATIN 40 MG TAB PO SCH (21:03)
[2019-06-01] MEDS: TEMAZEPAM 15 MG CAP PO SCH (21:04)
[2019-06-02] VITALS (7 sets, daily range): BP systolic 130–173; BP diastolic 62–98
--- NOTE | 2019-06-02 05:49 | NUR ---
IM- progress note O/N no events ROS: no f/c/s/N/V/D/GRIGSBY/vision changes/dizziness/skin rash v/s: revd PE tired appearing anicteric ns1s2 reduced BS; scattered wheezing-mild soft nt nd no e/t skin dry n. affect a&ox2; mckeon labs/meds; revd A/P: 84yoF AECOPD Atypical CP Abnormal EKG with inverted T waves. CHAYA HTN HLD Depression Nicotine dependence in remission Obesity BMI 32 PreDM- Hba1c 5.7/LDL 91 Hx stroke PLAN doxy/steroids/antitussives/antihistamine; Pulm consult; cardiac enzymes; echo; lipid panel;cardio eval. screen for DM Add statin/ASA/BB/ccb/ARB Restart home meds; Pepcid/lovenox; Hba1c/LDL 5.7/91; Trace right pleural effusion; cont care; 05/25 plan for angio prior to d/c. 05/26 CXR negative; check labs; 05/27 cont care; 05/28 s/p bronch; d/c planning; SNF eval 05/29 Pumonary hemorrhage; cont current care; 05/30 steroid titrated up; 05/31 snf eval 06/01 cont care. 06/02 check renal fn Yakov Eaton MD, PhD.
[2019-06-02] MEDS ORDERED: LABETALOL HCL 5 MG/ML 20ML VIAL IV STA (05:55)
[2019-06-02 06:45] LABS: ANION GAP 13.4 mmol/L (8-16); BLOOD UREA NITROGEN 21 mg/dL (7-26); BUN/CREATININE RATIO 28 (6-25); CALCIUM 8.3 mg/dL (8.4-10.2); CARBON DIOXIDE 25 mmol/L (22-29); CHLORIDE 100 mmol/L (98-107); CREATININE, SERUM 0.75 mg/dL (0.57-1.11); EST GLOMERULAR FILTRATION RATE > 60 ML/MIN (60-); GLUCOSE 170 mg/dL (74-118); POTASSIUM 4.4 mmol/L (3.5-5.1); SODIUM 134 mmol/L (136-145)
[2019-06-02] MEDS: OXYMETAZOLINE HCL 0.05% NAS 1 SPRAY BTL SCH ×3 (07:00→21:25)
--- NOTE | 2019-06-02 07:22 | NUR ---
RECEIVED PATIENT RESTING IN BED NO S/S OF DISTRESS. BED LOW, WHEELS LOCKED, SIDE RAILS X2. CALL LIGHT IN REACH WILL CONTINUE TO MONITOR PATIENT.
[2019-06-02] MEDS: ALBUTEROL/IPRATROPIUM 3 ML NEB NEB PRN ×3 (07:30→19:55)
--- NOTE | 2019-06-02 09:21 | NUR ---
[facility] FACILITY DISCHARGE INFORMATION PATIENT HAS BEEN ACCEPTED TO: NAME: [facility] AD[address]ESS: [id number] MD: JAN ROOM: 303 NURSE CALL REPORT TO: [phone] IMM SIGNED AND OBTAINED (if applicable): YES THE FOLLOWING DOCUMENTS MUST ACCOMPANY PATIENT FOR TRANSFER: COPIED CHART: CLINICALS AND PASRR
--- NOTE | 2019-06-02 09:45 | NUR ---
PATIENT A/O X3, EVEN RESPIRATIONS ON 3LNC. LUNG SOUNDS CLEAR TO AUSCULTATION. TELEMETRY #8 SR. RIGHT AC 20 GAUGE IV SL. PATIENT AMBULATES WITH WALKER AND ASSISTANCE. NO PAIN AT THIS TIME. FAMILY AT BEDSIDE. CALL LIGHT IN REACH WILL CONTINUE TO MONITOR PATIENT.
[2019-06-02] MEDS: FLUOXETINE HCL 20 MG CAP PO SCH (10:12)
[2019-06-02] MEDS: PANTOPRAZOLE 40 MG 10ML VIAL IV SCH (10:12)
[2019-06-02] MEDS: BENZONATATE 100 MG CAP PO SCH ×3 (10:12→21:25)
[2019-06-02] MEDS: LORATADINE 10 MG TAB PO SCH (10:12)
[2019-06-02] MEDS: METHYLPREDNISOLONE SOD SUCC 125 MG/2ML VIAL IV SCH ×2 (10:12→21:25)
[2019-06-02] MEDS: FAMOTIDINE 20 MG/2 ML VIAL IV SCH ×2 (10:12→21:25)
[2019-06-02] MEDS: FLUTICASONE PROPIONATE NASAL SPRAY NS SCH (10:12)
[2019-06-02] MEDS: AMLODIPINE BESYLATE 10 MG TAB PO SCH (10:12)
[2019-06-02] MEDS: LOSARTAN POTASSIUM 100 MG TAB PO SCH (10:12)
[2019-06-02] MEDS: CARVEDILOL 12.5 MG TAB PO SCH ×2 (10:12→21:25)
--- NOTE | 2019-06-02 11:25 | NUR ---
EDUCATED ABOUT IMM, SIGNED, FILED IN CHART, WITH COPY LEFT WITH FAMILY AT BEDSIDE.
[2019-06-02] MEDS: HYDROCODONE/CHLORPHENIRAMINE 5 ML LIQCR PO PRN (13:43)
--- NOTE | 2019-06-02 15:37 | Progress Note ---
DATE: 06/02/2019 SUBJECTIVE: The patient has less coughing. She has no hemoptysis. She is not complaining of any chest pain. PHYSICAL EXAMINATION: VITAL SIGNS: The patient is afebrile. The vital signs are stable. HEENT: Shows no facial swelling or erythema. CARDIAC: Reveals a regular rate and rhythm with a normal S1, S2. LUNGS: Auscultation of lungs reveals clear breath sounds bilaterally. There is no wheezing. ABDOMEN: Soft, nontender. There is no rebound or guarding. EXTREMITIES: Show no leg edema or calf tenderness. There is no cyanosis or clubbing. SKIN: Shows no rashes. NEUROLOGICAL: Shows no focal abnormalities. IMPRESSION: 1. Chronic obstructive pulmonary disease with acute exacerbation. 2. Resolving aspiration pneumonia. 3. Coronary artery disease. PLAN: 1. Continue current Solu-Medrol and antibiotics. 2. Continue cough suppressants. 3. Planning for cardiac catheterization on Wednesday. MD RAFFI Chirinos/[place] /[id number]
[2019-06-02] MEDS: FLUCONAZOLE 100 MG/NS 50 ML 50 ML IV SCH (16:08)
[2019-06-02] MEDS: ATORVASTATIN 40 MG TAB PO SCH (21:25)
[2019-06-02] MEDS: TEMAZEPAM 15 MG CAP PO SCH (21:25)
[2019-06-03] MEDS: HYDROCODONE/CHLORPHENIRAMINE 5 ML LIQCR PO PRN ×2 (03:53→23:42)
[2019-06-03 04:00] VITALS: BP 154/76
--- NOTE | 2019-06-03 06:14 | NUR ---
DR. PRESCOTT DOING ROUNDS. NEW ORDERS RECEIVE FOR PRN MORPHINE IV AND TO CONTINUE HOME MEDS. Addendum: 06/03/19 at 0738 by Everett Bains RN WRONG PATIENT
--- NOTE | 2019-06-03 07:10 | NUR ---
RECEIVED PATIENT RESTING IN BED NO SIGNS OF DISTRESS. BED LOW, WHEELS LOCKED, SIDE RAILS X2. CALL LIGHT IN REACH WILL CONTINUE TO MONITOR PATIENT.
[2019-06-03 07:49] VITALS: BP 177/77
[2019-06-03 08:43] VITALS: BP 177/77
--- NOTE | 2019-06-03 09:15 | NUR ---
PATIENT A/O X3, EVEN RESPIRATIONS ON 3LNC. LUNG SOUNDS CLEAR TO AUSCULTATION. TELEMETRY #8 SR. RIGHT AC 20 GAUGE IV SL. SKIN INTACT, NO EDEMA. PATIENT AMBULATES WITH WALKER AND ASSISTANCE. NO PAIN AT THIS TIME. FAMILY AT BEDSIDE. CALL LIGHT IN REACH WILL CONTINUE TO MONITOR PATIENT.
[2019-06-03] MEDS: PANTOPRAZOLE 40 MG 10ML VIAL IV SCH (09:29)
[2019-06-03] MEDS: OXYMETAZOLINE HCL 0.05% NAS 1 SPRAY BTL SCH ×2 (09:29→21:38)
[2019-06-03] MEDS: METHYLPREDNISOLONE SOD SUCC 125 MG/2ML VIAL IV SCH (09:29)
[2019-06-03] MEDS: LORATADINE 10 MG TAB PO SCH (09:29)
[2019-06-03] MEDS: FLUTICASONE PROPIONATE NASAL SPRAY NS SCH (09:29)
[2019-06-03] MEDS: FAMOTIDINE 20 MG/2 ML VIAL IV SCH ×2 (09:29→21:38)
[2019-06-03] MEDS: FLUOXETINE HCL 20 MG CAP PO SCH (09:30)
[2019-06-03] MEDS: LOSARTAN POTASSIUM 100 MG TAB PO SCH (09:30)
[2019-06-03] MEDS: BENZONATATE 100 MG CAP PO SCH ×3 (09:30→21:39)
[2019-06-03] MEDS: AMLODIPINE BESYLATE 10 MG TAB PO SCH (09:30)
[2019-06-03] MEDS: CARVEDILOL 12.5 MG TAB PO SCH ×2 (09:30→21:39)
--- NOTE | 2019-06-03 09:35 | NUR ---
PATIENT AMBULATING IN HALLWAY WITH WALKER. FAMILY MEMBER ASSISTING PATIENT. NO SIGNS OF DISTRESS.
[2019-06-03 12:20] VITALS: BP 172/72
[2019-06-03] MEDS: ALBUTEROL/IPRATROPIUM 3 ML NEB NEB PRN ×2 (13:27→20:05)
[2019-06-03] MEDS: FLUCONAZOLE 100 MG/NS 50 ML 50 ML IV SCH (14:35)
[2019-06-03 16:04] VITALS: BP 168/72
--- NOTE | 2019-06-03 18:53 | Progress Note ---
DATE: 06/03/2019 SUBJECTIVE: The patient feels better. She has less dyspnea. She has less cough. PHYSICAL EXAMINATION: VITAL SIGNS: The patient is afebrile. The vital signs are stable. HEENT: Shows no facial swelling or erythema. The oropharynx is normal. LYMPHATIC: Shows no submandibular, cervical, or supraclavicular adenopathy. CARDIAC: Reveals regular rate and rhythm with normal S1, S2. There are no murmurs or rubs heard. LUNGS: Auscultation of lungs shows clear breath sounds bilaterally. There is a prolonged expiratory phase. ABDOMEN: Soft, nontender. There is no rebound or guarding. EXTREMITIES: Show no leg edema or calf tenderness. There is no cyanosis or clubbing. SKIN: Shows no rashes. NEUROLOGICAL: Shows no focal abnormalities. IMPRESSION: 1. Chronic obstructive pulmonary disease with acute exacerbation. 2. Resolving pneumonia. 3. Possible coronary artery disease. PLAN: 1. The patient will continue antibiotics. 2. Taper steroids. 3. Await possible catheterization on Wednesday. MD RAFFI Chirinos/[facility] /[id number]
[2019-06-03 20:25] VITALS: BP 174/77
[2019-06-03] MEDS: ATORVASTATIN 40 MG TAB PO SCH (21:38)
[2019-06-03] MEDS: METHYLPREDNISOLONE SOD SUCC 40 MG/ML VIAL 1ML IV SCH (21:38)
[2019-06-03] MEDS: TEMAZEPAM 15 MG CAP PO SCH (21:39)
[2019-06-04] VITALS: BP 146/64
--- NOTE | 2019-06-04 05:35 | NUR ---
IM- progress note O/N no events ROS: no f/c/s/N/V/D/GRIGSBY/vision changes/dizziness/skin rash v/s: revd PE tired appearing anicteric ns1s2 reduced BS; scattered wheezing-mild soft nt nd no e/t skin dry n. affect a&ox2; mckeon labs/meds; revd A/P: 84yoF AECOPD Atypical CP Abnormal EKG with inverted T waves. CHAYA HTN HLD Depression Nicotine dependence in remission Obesity BMI 32 PreDM- Hba1c 5.7/LDL 91 Hx stroke PLAN doxy/steroids/antitussives/antihistamine; Pulm consult; cardiac enzymes; echo; lipid panel;cardio eval. screen for DM Add statin/ASA/BB/ccb/ARB Restart home meds; Pepcid/lovenox; Hba1c/LDL 5.7/91; Trace right pleural effusion; cont care; 05/25 plan for angio prior to d/c. 05/26 CXR negative; check labs; 05/27 cont care; 05/28 s/p bronch; d/c planning; SNF eval 05/29 Pumonary hemorrhage; cont current care; 05/30 steroid titrated up; 05/31 snf eval 06/01 cont care. 06/02 check renal fn 06/03 control BP; LHC pending; 06/04 cont same Yakov Eaton MD, PhD.
--- NOTE | 2019-06-04 07:00 | NUR ---
RECEIVED PATIENT RESTING IN BED NO S/S OF DISTRESS. BED LOW, WHEELS LOCKED, SIDE RAILS X2. CALL LIGHT IN REACH WILL CONTINUE TO MONITOR PATIENT.
[2019-06-04] MEDS: OXYMETAZOLINE HCL 0.05% NAS 1 SPRAY BTL SCH ×2 (07:24→21:46)
[2019-06-04] MEDS: ALBUTEROL/IPRATROPIUM 3 ML NEB NEB PRN ×3 (07:28→18:55)
[2019-06-04] MEDS: METHYLPREDNISOLONE SOD SUCC 40 MG/ML VIAL 1ML IV SCH ×2 (09:15→21:46)
[2019-06-04] MEDS: FAMOTIDINE 20 MG/2 ML VIAL IV SCH ×2 (09:15→21:46)
[2019-06-04] MEDS: FLUOXETINE HCL 20 MG CAP PO SCH (09:15)
[2019-06-04] MEDS: CARVEDILOL 12.5 MG TAB PO SCH ×2 (09:15→21:47)
[2019-06-04] MEDS: LOSARTAN POTASSIUM 100 MG TAB PO SCH (09:15)
[2019-06-04] MEDS: LORATADINE 10 MG TAB PO SCH (09:15)
[2019-06-04] MEDS: BENZONATATE 100 MG CAP PO SCH ×3 (09:15→21:47)
[2019-06-04] MEDS: AMLODIPINE BESYLATE 10 MG TAB PO SCH (09:15)
[2019-06-04] MEDS: PANTOPRAZOLE 40 MG 10ML VIAL IV SCH (09:15)
[2019-06-04] MEDS: FLUTICASONE PROPIONATE NASAL SPRAY NS SCH (09:15)
[2019-06-04 09:20] VITALS: BP 148/83
[2019-06-04 12:09] VITALS: BP 142/63
[2019-06-04] MEDS: AZITHROMYCIN 500MG/NS 250 ML 250 ML IV SCH (12:42)
--- NOTE | 2019-06-04 12:42 | Progress Note ---
DATE: 06/04/2019 SUBJECTIVE: The patient has some cough. She had some dyspnea last night. She is feeling better today. She has no chest pain. She has no fevers. PHYSICAL EXAMINATION: VITAL SIGNS: The patient is afebrile. The vital signs are stable. HEENT: Shows no facial swelling or erythema. CARDIAC: Reveals regular rate and rhythm with normal S1 and S2. There are no murmurs or rubs heard. LUNGS: Auscultation of lungs reveals clear breath sounds bilaterally. There is no wheezing. ABDOMEN: Soft, nontender. There is no rebound or guarding. EXTREMITIES: Show no leg edema or calf tenderness. There is no cyanosis or clubbing. SKIN: Shows no rashes. NEUROLOGICAL: Shows no focal abnormalities. IMPRESSION: 1. Chronic obstructive pulmonary disease with acute exacerbation. 2. Resolving pneumonia. 3. Coronary artery disease. PLAN: 1. Taper steroids. 2. Continue current antibiotics. 3. Await catheterization on Wednesday. Keith Monteiro MD [facility]/[place] /[id number]
[2019-06-04] MEDS: HYDROCODONE/CHLORPHENIRAMINE 5 ML LIQCR PO PRN (12:46)
--- NOTE | 2019-06-04 13:50 | NUR ---
Visit made by the Spiritual Care Department Pastoral Visitor, Joel Wen. PV provided pastoral presence, hospitality, and supportive listening. Pastoral Visitor informed pt/family of the scope of [employer] and availability. ASAF MERINO Associate Loan Officer Spiritual Care Department O: [phone] Pager: [phone] ([phone] number calling from)
[2019-06-04] MEDS: FLUCONAZOLE 100 MG/NS 50 ML 50 ML IV SCH (14:53)
[2019-06-04 17:01] VITALS: BP 152/67
--- NOTE | 2019-06-04 19:14 | NUR ---
SPOKE TO DR. ORTIZ AT THIS TIME REGARDING PRN COUGH MEDICINE. NEW ORDER RECEIVED TO INCREASE TUSSIONEX TO 10ML PRN Q12H.
--- NOTE | 2019-06-04 19:19 | NUR ---
DR. NIKHIL LACY DOING ROUNDS. NEW ORDERS RECEIVE FOR NPO DIET AFTER MIDNIGHT AND CONSENT FOR HEART CATH.
--- NOTE | 2019-06-04 19:40 | NUR ---
SPOKE TO PHARMACIST RAFA MARSHALL Addendum: 06/04/19 at 1944 by Everett Bains RN INFORMED BY PHARMACIST THAT 10ML PRN TUSSIONEX IS OVER THE DAILY LIMIT. PRN TUSSIONEX CHANGED BACK BY PHARMACY TO 5ML
[2019-06-04 20:38] VITALS: BP 142/94
[2019-06-04 20:40] VITALS: BP 142/94
[2019-06-04] MEDS: TEMAZEPAM 15 MG CAP PO SCH (21:47)
[2019-06-04] MEDS: ATORVASTATIN 40 MG TAB PO SCH (21:47)
[2019-06-05] VITALS (14 sets, daily range): BP systolic 144–168; BP diastolic 57–88
[2019-06-05] MEDS: HYDROCODONE/CHLORPHENIRAMINE 5 ML LIQCR PO PRN (00:52)
--- NOTE | 2019-06-05 04:24 | Progress Note ---
DATE: 06/04/2019 Cardiology Progress Note SUBJECTIVE: No major events overnight. Breathing is better. The patient is still coughing. No bright red blood; however, she does cough up some dark clots from [id number]. Denies any chest pain. No shortness of breath at this time. OBJECTIVE: VITAL SIGNS: Temperature afebrile, pulse 80, respiratory rate 21, blood pressure 142/94, saturating 92% on nasal cannula. GENERAL: Well-appearing elderly woman, sitting up in recliner. No acute distress. CARDIOVASCULAR: Regular rate and rhythm, 2/6 systolic murmur at right upper sternal border. LUNGS: Scattered rhonchi in bilateral bases. ABDOMEN: Soft, nontender, nondistended. NEURO AND PSYCH: Alert and oriented to person, place, and time. Normal affect. INPATIENT MEDICATIONS: Reviewed. LABORATORY DATA: Reviewed. TELEMETRY DATA: Reviewed, shows normal sinus rhythm. ASSESSMENT/PLAN: 1. Aspiration pneumonia. 2. Hemoptysis. 3. Chronic obstructive pulmonary disease exacerbation. 4. Acute on chronic diastolic heart failure exacerbation. 5. Coronary artery disease. 6. Chest pain, hemoptysis and pneumonia improved. From pulmonary standpoint, she is okay to undergo coronary angiography, possible intervention, plan to be done tomorrow, otherwise, continue optimal medical therapy. Thank you for this consult. MD HEIDI Morfin/MARIPOSA /[id number]
[2019-06-05] MEDS ORDERED: COREG12.5 MG PO (06:46)
[2019-06-05] MEDS ORDERED: TESSALON PERLE100 MG PO (06:46)
[2019-06-05] MEDS ORDERED: OXYMETAZOLINE HCL 0.05% (06:46)
--- NOTE | 2019-06-05 06:47 | NUR ---
IM- progress note O/N no events ROS: no f/c/s/N/V/D/GRIGSBY/vision changes/dizziness/skin rash v/s: revd PE tired appearing anicteric ns1s2 reduced BS; scattered wheezing-mild soft nt nd no e/t skin dry n. affect a&ox2; mckeon labs/meds; revd A/P: 84yoF AECOPD Atypical CP Abnormal EKG with inverted T waves. CHAYA HTN HLD Depression Nicotine dependence in remission Obesity BMI 32 PreDM- Hba1c 5.7/LDL 91 Hx stroke PLAN doxy/steroids/antitussives/antihistamine; Pulm consult; cardiac enzymes; echo; lipid panel;cardio eval. screen for DM Add statin/ASA/BB/ccb/ARB Restart home meds; Pepcid/lovenox; Hba1c/LDL 5.7/91; Trace right pleural effusion; cont care; 05/25 plan for angio prior to d/c. 05/26 CXR negative; check labs; 05/27 cont care; 05/28 s/p bronch; d/c planning; SNF eval 05/29 Pumonary hemorrhage; cont current care; 05/30 steroid titrated up; 05/31 snf eval 06/01 cont care. 06/02 check renal fn 06/03 control BP; LHC pending; 06/04 cont same 06/05 if cardiac testing negative, d/c home later to day with PT/HH. Yakov Eaton MD, PhD.
--- NOTE | 2019-06-05 07:09 | NUR ---
Patient sitting on recliner with eyes open. Respiration even and unlabored without SOB. Call light in reach.
[2019-06-05] MEDS: OXYMETAZOLINE HCL 0.05% NAS 1 SPRAY BTL SCH (07:30)
[2019-06-05 08:23] LABS: BASOPHILS % 0.2 % (0.0-1.0); HEMATOCRIT 36.2 % (34.2-44.1); HEMOGLOBIN 11.9 g/dL (12.0-16.0); LYMPHOCYTES # (AUTO) 0.4 (1.0-3.2); LYMPHOCYTES % 3.1 % (18.0-39.1); MEAN CORPUSCULAR HEMOGLOBIN 31.8 pg (28-32); MEAN CORPUSCULAR HGB CONC 32.9 g/dL (31-35); MEAN CORPUSCULAR VOLUME 96.8 fL (81-99); MONOCYTES # (AUTO) 0.6 (0.2-0.8); MONOCYTES % 4.7 % (4.4-11.3); NEUTROPHILS # (AUTO) 10.9 (2.1-6.9); NEUTROPHILS % 89.8 % (38.7-80.0); PLATELET COUNT 223 x10e3/uL (140-360); RED BLOOD COUNT 3.74 x10e6/uL (3.6-5.1); RED CELL DISTRIBUTION WIDTH 13.6 % (11.7-14.4)
[2019-06-05 08:35] LABS: INR 1.06; PARTIAL THROMBOPLASTIN TIME 22.4 seconds (23.8-35.5); PROTHROMBIN TIME 14.3 seconds (11.9-14.5)
[2019-06-05 08:41] LABS: ALANINE AMINOTRANSFERASE 42 IU/L (0-55); ALBUMIN 3.3 g/dL (3.5-5.0); ALBUMIN/GLOBULIN RATIO 1.2 (0.8-2.0); ALKALINE PHOSPHATASE 45 IU/L (40-150); ANION GAP 13.4 mmol/L (8-16); BLOOD UREA NITROGEN 17 mg/dL (7-26); BUN/CREATININE RATIO 24 (6-25); CALCIUM 8.5 mg/dL (8.4-10.2); CARBON DIOXIDE 30 mmol/L (22-29); CHLORIDE 97 mmol/L (98-107); CREATININE, SERUM 0.72 mg/dL (0.57-1.11); EST GLOMERULAR FILTRATION RATE > 60 ML/MIN (60-); GLUCOSE 144 mg/dL (74-118); POTASSIUM 4.4 mmol/L (3.5-5.1); SODIUM 136 mmol/L (136-145)
[2019-06-05] MEDS: LORATADINE 10 MG TAB PO SCH (09:00)
[2019-06-05] MEDS: FLUOXETINE HCL 20 MG CAP PO SCH (09:00)
[2019-06-05] MEDS: BENZONATATE 100 MG CAP PO SCH ×3 (09:00→20:58)
[2019-06-05] MEDS: AMLODIPINE BESYLATE 10 MG TAB PO SCH (09:00)
[2019-06-05] MEDS: LOSARTAN POTASSIUM 100 MG TAB PO SCH (09:00)
[2019-06-05] MEDS: CARVEDILOL 12.5 MG TAB PO SCH ×2 (09:00→20:58)
[2019-06-05 09:22] LABS: LYMPHOCYTES % (MANUAL) 9 % (19-48); MONOCYTES % (MANUAL) 8 % (3.4-9.0); NEUTROPHILS % (MANUAL) 83 % (40-74)
[2019-06-05] MEDS: FAMOTIDINE 20 MG/2 ML VIAL IV SCH ×2 (09:22→20:57)
[2019-06-05] MEDS: METHYLPREDNISOLONE SOD SUCC 40 MG/ML VIAL 1ML IV SCH ×2 (09:22→20:57)
[2019-06-05] MEDS: PANTOPRAZOLE 40 MG 10ML VIAL IV SCH (09:22)
[2019-06-05 09:23] LABS: PLATELET ESTIMATE ADEQUATE; PLATELET MORPHOLOGY COMMENT NORMAL; RBC MORPHOLOGY COMMENT NORMAL
[2019-06-05] MEDS: FLUTICASONE PROPIONATE NASAL SPRAY NS SCH (09:23)
--- NOTE | 2019-06-05 09:53 | NUR ---
ST NOTE: Pt scheduled to have procedure at 1200. Will continue with dysphagia therapy on 06/06/19 to allow for pt recovery from procedure. Handoff to STEPHANI Duarte.
[2019-06-05] MEDS ORDERED: FUROSEMIDE INJ 10 MG/ML 2 ML VIAL IV ONE (10:30)
[2019-06-05] MEDS ORDERED: VERAPAMIL HCL 2.5 MG/ML 2 ML VIAL ONE (11:10)
[2019-06-05] MEDS ORDERED: MIDAZOLAM HCL 2 MG/2 ML VIAL ONE (11:10)
[2019-06-05] MEDS ORDERED: HEPARIN SOD (PORCINE) 1000 UNIT/ML 30ML ONE (11:10)
[2019-06-05] MEDS ORDERED: SODIUM CHLORIDE 0.9% 1000ML 3,000 ML ONE (11:11)
[2019-06-05] MEDS ORDERED: LIDOCAINE HCL 2% LOCAL 20 ML VIAL ONE (11:11)
[2019-06-05] MEDS ORDERED: FENTANYL CITRATE/PF 100MCG/2 ML INJ ONE (11:11)
[2019-06-05] MEDS ORDERED: IOPAMIDOL 370 MG/ML 200 ML INFUS..BTL INJ ONE (11:11)
[2019-06-05] MEDS ORDERED: NITROGLYCERIN/D5W 200 MCG/ML 250 ML ONE (11:12)
--- NOTE | 2019-06-05 11:48 | NUR ---
Patient is transported for heart cath at this time.
--- NOTE | 2019-06-05 12:05 | NUR ---
EDUCATED ABOUT IMM, SIGNED, FILED IN CHART, WITH COPY LEFT WITH FAMILY AT BEDSIDE.
--- NOTE | 2019-06-05 12:45 | NUR ---
Report provided to Jasper Cm RN, review of procedural findings and medications given. Patient drowsy, easily aroused. maintains airway and room air saturations of 96-98% on 2L/NC dependent. No gross issues of pressure, pain, pallor or dysrhythmia. IV site patent with NS 0.9% at KVO by dial-flow. patient hemodynamically stable with hemostasis TR band right radial dressing CDI w/o s/s of bleeding. patient transferred to [facility] max assist w/o incident. transported to [facility] holding - cgf procedure: DX LHC and coronary angiography Sheath puller: Rohini RTr TR band 14ml Meds Given Intra-Procedure Sedatives Versed - 0.5 mg Fentanyl - 25 mcg Radial Cocktail Heparin - 3000 Units Verapamil - 2.5 mg Nitro - 200 mcg Fluids Input - 100 Output - dtv Contrast Isovue 370 - 65 ml Other Meds NA
--- NOTE | 2019-06-05 13:25 | NUR ---
Received patient back from Jasper Cm RN. No gross or obvious issues. Family at bedside. VS WNL of patient trend. assume of care - cgf
--- NOTE | 2019-06-05 13:30 | NUR ---
POC Reviewed with family, TR band removal and post care. TR band bladder deflated by 3ml, no bleed back observed. + neurovascular function of right hand.- cgf
--- NOTE | 2019-06-05 13:45 | NUR ---
Additional 3ml deflated from TR band, no change from assess - cgf
[2019-06-05] MEDS: AZITHROMYCIN 500MG/NS 250 ML 250 ML IV SCH (15:19)
[2019-06-05] MEDS: ALBUTEROL/IPRATROPIUM 3 ML NEB NEB PRN (16:24)
--- NOTE | 2019-06-05 16:54 | Progress Note ---
DATE: 06/05/2019 Pulmonary Progress Note SUBJECTIVE: The patient went for cardiac cath today. She has less dyspnea. She still has some cough. PHYSICAL EXAMINATION: VITAL SIGNS: The patient is afebrile. The vital signs are stable. HEENT: Shows no facial swelling or erythema. CARDIAC: Reveals regular rate and rhythm with normal S1, S2. There are no murmurs or rubs. LUNGS: Auscultation of lungs reveals clear breath sounds bilaterally. There is no wheezing. ABDOMEN: Soft, nontender. There is no rebound or guarding. EXTREMITIES: Show no leg edema or calf tenderness. IMPRESSION: 1. Resolving pneumonia. 2. Chronic obstructive pulmonary disease with acute exacerbation. PLAN: 1. Taper steroids. 2. Complete antibiotics. 3. Planning for discharge to alf facility tomorrow. Keith Monteiro MD LMH/TARAL /[id number]
[2019-06-05] MEDS: FLUCONAZOLE 100 MG/NS 50 ML 50 ML IV SCH (17:02)
--- NOTE | 2019-06-05 19:00 | NUR ---
received report from day nurse. patient is resting comfortably in bed. bed is in lowest position and call elliott is within reach. will continue to monitor patient.
--- NOTE | 2019-06-05 19:07 | NUR ---
Report given to police shift commander nurse. patient lying in bed with eyes open. Respiration even and unlabored without SOB. Call light in reach
[2019-06-05] MEDS: TEMAZEPAM 15 MG CAP PO SCH (20:58)
[2019-06-05] MEDS: ATORVASTATIN 40 MG TAB PO SCH (20:58)
[2019-06-06] VITALS: BP 163/76
[2019-06-06] MEDS: HYDROCODONE/CHLORPHENIRAMINE 5 ML LIQCR PO PRN (00:47)
--- NOTE | 2019-06-06 01:01 | Progress Note ---
DATE: 06/05/2019 Cardiology progress note SUBJECTIVE: The patient denies chest pain. She continues to report shortness of breath. Cardiac catheterization was performed without intervention. OBJECTIVE: VITAL SIGNS: Temperature 97.6 degrees, pulse 60, respiratory rate 16, blood pressure 168/72, and oxygen saturation 94%. GENERAL: Elderly woman, in no acute distress. Awake and alert. LUNGS: Clear to auscultation bilaterally. No wheezes or crackles. CARDIOVASCULAR: Normal rate and regular rhythm. A 2/6 systolic murmur. ABDOMEN: Soft and nontender. EXTREMITIES: 1+ pitting edema. CARDIAC MEDICATION: Carvedilol 12.5 mg p.o. q.12 hours, atorvastatin 40 mg p.o. at bedtime, losartan 100 mg p.o. daily, and amlodipine 10 mg p.o. daily. LABORATORY DATA: WBC 12.13, hemoglobin 11.9, hematocrit 36.2, and platelets 223. Sodium 136, potassium 4.4, chloride 97, CO2 of 30, BUN 17, and creatinine 0.72. IMPRESSION: 1. Aspiration pneumonia. 2. Hemoptysis. 3. Chronic obstructive pulmonary disease exacerbation. 4. Acute on chronic diastolic heart failure. 5. Coronary artery disease. 6. Chest pain. RECOMMENDATIONS: The patient underwent cardiac catheterization today without intervention. Continue risk factor modification. Blood pressure is not well controlled; however, she did not have losartan or amlodipine today due to procedure. We will reassess blood pressure with resuming antihypertensive therapy, may likely would benefit from increasing carvedilol if heart rate tolerates. Treatment of chronic obstructive pulmonary disease exacerbation per Pulmonary. Antibiotics per Primary Service. Check BNP in the morning. May benefit from continued diuretics. Thank you for this consult. We will continue to follow. Korin Oliveros MD ABS/MODL /[id number]
--- NOTE | 2019-06-06 05:27 | Progress Note ---
DATE: 06/02/2019 Cardiology Progress Note SUBJECTIVE: The patient is feeling better. Shortness of breath has improved. OBJECTIVE: VITAL SIGNS: Temperature is 96.6, heart rate is 68, respirations are 20, blood pressure is 137/62, and oxygen saturation 94% on room air. GENERAL: Well-appearing elderly woman, seated at bedside. CARDIOVASCULAR: Regular rate and rhythm. LUNGS: Scattered rhonchi. ABDOMEN: Soft, nontender, and nondistended. EXTREMITIES: Trace edema. CARDIOVASCULAR MEDICATIONS: Reviewed. LABORATORY DATA: Reviewed. TELEMETRY MONITORING: Revealed normal sinus rhythm. IMPRESSION: 1. Aspiration pneumonia. 2. Hemoptysis. 3. Chronic obstructive pulmonary disease. 4. Acute on chronic diastolic heart failure. 5. Coronary artery disease. 6. Chest pain. RECOMMENDATIONS: Continue antibiotics and hemoptysis treatment per Pulmonology. She was found to have coronary artery disease by CT scan. The patient appears to be more stable from pulmonary standpoint. We will plan for coronary angiography on Wednesday. Dashawn Meek DO BM/MODL /[id number]
--- NOTE | 2019-06-06 06:49 | NUR ---
D/C summary Principal dx: AECOPD Atypical CP Abnormal EKG with inverted T waves. CHAYA PreDM Right pleural effusion- trace Hemoptysis Secondary dx: HTN HLD Depression Nicotine dependence in remission Obesity BMI 32 Hx stroke PLAN doxy/steroids/antitussives/antihistamine; Pulm consult; cardiac enzymes; echo; lipid panel;cardio eval. screen for DM Add statin/ASA/BB/ccb/ARB Restart home meds; Pepcid/lovenox; Hba1c/LDL 5.7/91; Trace right pleural effusion; cont care; 05/25 plan for angio prior to d/c. 05/26 CXR negative; check labs; 05/27 cont care; 05/28 s/p bronch; d/c planning; SNF eval 05/29 Pumonary hemorrhage; cont current care; 05/30 steroid titrated up; 05/31 snf eval 06/01 cont care. 06/02 check renal fn 06/03 control BP; LHC pending; 06/04 cont same 06/05 if cardiac testing negative, d/c home later to day with PT/HH. 06/06 d/c today Heart procedure negative d/c SNF stable f/u pcp 1 week and flagger 2 weeks d/c>35mins Yakov Eaton MD, PhD.
--- NOTE | 2019-06-06 06:59 | NUR ---
report given to day nurse. patient is resting comfortably in bed, bed is in lowest position and call elliott is within reach
[2019-06-06] MEDS: ALBUTEROL/IPRATROPIUM 3 ML NEB NEB PRN (07:00)
--- NOTE | 2019-06-06 07:09 | NUR ---
Received patient lying in bed with eyes closed, Respiration even and unlabored without SOB. call light in reach.
[2019-06-06 07:32] VITALS: BP 159/68
[2019-06-06 08:49] VITALS: BP 159/68
[2019-06-06] MEDS: FAMOTIDINE 20 MG/2 ML VIAL IV SCH (08:50)
[2019-06-06] MEDS: PANTOPRAZOLE 40 MG 10ML VIAL IV SCH (08:51)
[2019-06-06] MEDS: METHYLPREDNISOLONE SOD SUCC 40 MG/ML VIAL 1ML IV SCH (08:51)
[2019-06-06] MEDS: LORATADINE 10 MG TAB PO SCH (08:51)
[2019-06-06] MEDS: FLUTICASONE PROPIONATE NASAL SPRAY NS SCH (08:51)
[2019-06-06] MEDS: CARVEDILOL 12.5 MG TAB PO SCH (08:51)
[2019-06-06] MEDS: LOSARTAN POTASSIUM 100 MG TAB PO SCH (08:51)
[2019-06-06] MEDS: BENZONATATE 100 MG CAP PO SCH (08:52)
[2019-06-06] MEDS: AMLODIPINE BESYLATE 10 MG TAB PO SCH (08:52)
[2019-06-06] MEDS: FLUOXETINE HCL 20 MG CAP PO SCH (08:52)
--- NOTE | 2019-06-06 08:54 | NUR ---
CALLED FACILITY TO GET NEW ROOM NUMBER, WAS TOLD THEY ARE GOING INTO MORNING MEETING AND WILL LET ME KNOW [employer]IST TIME AND ROOM NUMBER.
--- NOTE | 2019-06-06 10:27 | NUR ---
PT GOING TO [address]IMBLE, WILL BE PICKED UP AT 12 NOON
--- NOTE | 2019-06-06 10:47 | NUR ---
Patient is to be transferred to SNF. Report given to VIDAL Phillips at [facility].
--- NOTE | 2019-06-06 12:38 | NUR ---
Patient is transported via wheelchair going to SNF. Respiration even and unlabored without SOB. All the belongings are with the patient's daughters.
[2019-06-06] MEDS ORDERED: PREDNISONE 10 MG TAB PO SCH (17:00)
--- NOTE | 2019-06-19 20:15 | Operative Report ---
DATE OF PROCEDURE: 06/05/2019 SURGEON: Иван Sneed MD INDICATIONS FOR PROCEDURE: Chest pain, coronary artery calcification on CT scan and abnormal EKG. PROCEDURES PERFORMED: 1. Coronary angiography, right radial approach. 2. Left heart catheterization. PROCEDURE DETAILS: The patient was brought to the cardiac catheterization laboratory in a fasting state. Right wrist was prepped and draped in a sterile fashion. A 6-Armenian Slender sheath was inserted into the right radial artery using modified Seldinger technique. Coronary angiography was performed using Gayle radial catheter to engage the left and right coronary arteries. Left heart catheterization was performed using a pigtail catheter. All catheters were removed over a wire. Access site was closed using a TR band device. MEDICATIONS: Please see nursing notes for medications administered during the procedure. SIGNIFICANT FINDINGS: Left main large caliber, no significant CAD, LAD, large vessel goes to the apex, one large diagonal branch. There is 23% stenosis and luminal irregularities with significant calcification, but no obstructive CAD. Left circumflex and large nondominant vessel. One large OM branch significant calcification without obstruction of the lumen. RCA, very large dominant RCA, 20% to 30% stenosis in the proximal portion, medium size RPDA and large RPL system, moderate calcification without obstructive CAD. Left ventricular end-diastolic pressure 17 mmHg. No gradient across the aortic valve. GRAFTS AND IMPLANTS: None. SPECIMEN REMOVED: None. ESTIMATED BLOOD LOSS: 20 mL. COMPLICATIONS: None. FINAL RECOMMENDATIONS: 1. Continue optimal medical therapy and risk factor control. 2. Follow up in clinic 2 weeks post procedure. Иван Sneed MD KVP/MODL /[id number]
== END 2019-06-06 12:37 | DRG 853 ==
LOC: ER 16:58 → ERHOLD 18:13 → INTOOBSV 18:13 → MED/SURG 20:15 → OBSVTOIN 05-24 07:33 → MED/SURG 05-30 17:52
PROVIDERS: ADMIT Internal Medicine; ATTEND Internal Medicine
PROC: 0B9F8ZZ Drainage of Right Lower Lung Lobe, Via Natural or Artificial Opening Endoscopic (ICD-10-PCS; 2019-05-26)
PROC: 0B9J8ZZ Drainage of Left Lower Lung Lobe, Via Natural or Artificial Opening Endoscopic (ICD-10-PCS; principal; 2019-05-26 14:13)
PROC: 4A023N7 Measurement of Cardiac Sampling and Pressure, Left Heart, Percutaneous Approach (ICD-10-PCS; 2019-06-05)
PROC: B2151ZZ Fluoroscopy of Left Heart using Low Osmolar Contrast (ICD-10-PCS; 2019-06-05)
PROC: B2111ZZ Fluoroscopy of Multiple Coronary Arteries using Low Osmolar Contrast (ICD-10-PCS; 2019-06-05)
DX: A41.9 Sepsis, unspecified organism (principal); J69.0 Pneumonitis due to inhalation of food and vomit; I50.33 Acute on chronic diastolic (congestive) heart failure; J44.1 Chronic obstructive pulmonary disease with (acute) exacerbation; R04.2 Hemoptysis; N17.9 Acute kidney failure, unspecified; B37.0 Candidal stomatitis; R04.89 Hemorrhage from other sites in respiratory passages; I11.0 Hypertensive heart disease with heart failure; I25.10 Atherosclerotic heart disease of native coronary artery without angina pectoris; Z87.891 Personal history of nicotine dependence; E78.5 Hyperlipidemia, unspecified; M81.0 Age-related osteoporosis without current pathological fracture; F03.90 Unspecified dementia, unspecified severity, without behavioral disturbance, psychotic disturbance, mood disturbance, and anxiety; K57.90 Diverticulosis of intestine, part unspecified, without perforation or abscess without bleeding; Z86.73 Personal history of transient ischemic attack (TIA), and cerebral infarction without residual deficits; R07.89 Other chest pain; E66.9 Obesity, unspecified; Z68.32 Body mass index [BMI] 32.0-32.9, adult; R73.03 Prediabetes; D64.9 Anemia, unspecified
CPT/HCPCS: 31622; 36415; 71045; 71046; 71250; 71260; 74230; 80048; 80053; 80061; 81001; 82550; 82553; 82948; 83036; 83880; 84484; 85025; 85610; 85730; 86021; 86039; 87070; 87102; 87116; 87205; 87206; 87335; 93005; 93306; 93458; 94640; 97139; 99285; C1887; G0378; J0456; J0696; J1100; J1450; J1644; J1650; J1940; J2001; J2250; J2920; J2930; J3010; J7030; J7050; Q9967

== ENCOUNTER 2020-07-10 15:11 | Emergency (ER) | payer MEDICARE ==
[~2020-07-10] VITALS: Ht 157.5 cm; Wt 92.1 kg
[~2020-07-10 15:11] MED LIST changes: +COREG12.5 MG PO; +OXYMETAZOLINE HCL 0.05%; +TESSALON PERLE100 MG PO
[2020-07-10] MEDS ORDERED: ASPIRIN 81 MG CHEW TAB PO ONE (15:30)
[2020-07-10] MEDS ORDERED: GLUCAGON FOR INJ 1 MG VIAL IV STA (15:35)
[2020-07-10 15:50] LABS: BASOPHILS % 0.4 % (0.0-1.0); EOSINOPHILS # (AUTO) 0.3 (0.0-0.4); EOSINOPHILS % 3.3 % (0.0-6.0); HEMATOCRIT 32.6 % (34.2-44.1); HEMOGLOBIN 12.3 g/dL (12.0-16.0); LYMPHOCYTES # (AUTO) 1.7 (1.0-3.2); LYMPHOCYTES % 23.2 % (18.0-39.1); MEAN CORPUSCULAR HEMOGLOBIN 37.2 pg (28-32); MEAN CORPUSCULAR HGB CONC 37.7 g/dL (31-35); MEAN CORPUSCULAR VOLUME 98.5 fL (81-99); MONOCYTES # (AUTO) 0.6 (0.2-0.8); MONOCYTES % 8.4 % (4.4-11.3); NEUTROPHILS # (AUTO) 4.8 (2.1-6.9); NEUTROPHILS % 64.4 % (38.7-80.0); PLATELET COUNT 175 x10e3/uL (140-360); RED BLOOD COUNT 3.31 x10e6/uL (3.6-5.1); RED CELL DISTRIBUTION WIDTH 15.9 % (11.7-14.4)
[2020-07-10] MEDS ORDERED: CALCIUM GLUCONATE 10% INJ 4.65 MEQ in SODIUM CHLORIDE 0.9% 50ML 50 ML IV ONE (16:00)
[2020-07-10 16:02] LABS: INR 0.95; PROTHROMBIN TIME 13.2 seconds (11.9-14.5)
[2020-07-10 16:12] LABS: ALBUMIN 4.1 g/dL (3.5-5.0); ALBUMIN/GLOBULIN RATIO 1.2 (0.8-2.0); ANION GAP 15.1 mmol/L (8-16); CALCIUM 9.4 mg/dL (8.4-10.2); CREATININE, SERUM 1.05 mg/dL (0.57-1.11); POTASSIUM 4.1 mmol/L (3.5-5.1)
[2020-07-10 16:19] LABS: CREATINE KINASE MB 2.5 ng/mL (0-5.0)
[2020-07-10 21:14] LABS: PLATELET ESTIMATE ADEQUATE; PLATELET MORPHOLOGY COMMENT NORMAL; RBC MORPHOLOGY COMMENT NORMAL; ROULEAU FEW
== END 2020-07-10 17:14 | disposition home or self-care (01) ==
LOC: ER 16:02
DX: R41.0 Disorientation, unspecified (principal); R00.1 Bradycardia, unspecified; R94.31 Abnormal electrocardiogram [ECG] [EKG]; I10 Essential (primary) hypertension; J44.9 Chronic obstructive pulmonary disease, unspecified; F41.9 Anxiety disorder, unspecified; K21.9 Gastro-esophageal reflux disease without esophagitis
CPT/HCPCS: 36415; 70450; 71046; 80053; 82550; 82553; 83880; 84484; 85025; 85610; 93005; 99284; J0610; J1610